=== PATIENT | female | born 1985 | race Caucasian/White ===

== ENCOUNTER 2020-06-23 21:48 | Emergency (ER) | payer BC ==
[2020-06-23 22:30] LABS: Basophils % 0.5 % (0-1.3); Hematocrit 45.9 % (36.0-45.0); Lymphocytes % 18.2 % (15.3-44.8); MPV 8.2 fL (7.6-11.3); RBC Red Blood Cell Count 5.16 M/uL (3.86-4.86)
[2020-06-23] MEDS ORDERED: ONDANSETRON 4 MG/2 ML VIAL ONE (22:36)
[2020-06-23] MEDS ORDERED: MORPHINE 4 MG/ML SYR ONE (22:36)
[2020-06-23] MEDS ORDERED: NA CHLORIDE 0.9% 500 ML ONE (22:36)
[2020-06-23] MEDS ORDERED: dexAMETHasone 10 MG/ML VIAL ONE (22:36)
[2020-06-23 23:05] LABS: Potassium 3.9 mmol/L (3.5-5.1)
[2020-06-23 23:07] LABS: Thyroid Stimulating Hormone 19.7 uIU/mL (0.360-3.740)
--- NOTE | 2020-06-23 23:33 | EDPHYS ---
Physician Documentation [facility] Name: Champ Wills Age: 34 yrs Sex: Female : 1985 Arrival Date: 06/23/2020 Time: 21:51 Bed 13 Private MD: ED Physician Reji Jones HPI: 06/23 22:10 This 34 yrs old Female presents to ER via Ambulatory with complaints of pkl Migraine, Vomiting. 22:10 The patient complains of pain to the top of head and forehead. The patient describes pkl the headache as constant. Onset: The symptoms/episode began/occurred today, 5 hour(s) ago. Associated signs and symptoms: Pertinent positives: nausea, vomiting. Patient said she has not been taking her thyroid medication for 1 week. 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 - Social history:: Smoking status: Patient denies any tobacco usage or history of. Patient/guardian denies using alcohol, street drugs. ROS: 22:10 Eyes: Negative for injury, pain, redness, and discharge, ENT: Negative for injury, pkl pain, and discharge, Neck: Negative for injury, pain, and swelling, Cardiovascular: Negative for chest pain, palpitations, and edema, Respiratory: Negative for shortness of breath, cough, wheezing, and pleuritic chest pain. 22:10 Abdomen/GI: Positive for nausea, vomiting. 22:10 Back: Negative for acute changes. 22:10 : Negative for urinary symptoms. 22:10 MS/extremity: Negative for acute changes. 22:10 Skin: Negative for rash. 22:10 Neuro: Negative for altered mental status. 22:10 Neuro: Positive for headache. pkl Exam: 22:10 Head/Face: Normocephalic, atraumatic. Eyes: Pupils equal round and reactive to light, pkl extra-ocular motions intact. Lids and lashes normal. Conjunctiva and sclera are non-icteric and not injected. Cornea within normal limits. Periorbital areas with no swelling, redness, or edema. ENT: Nares patent. No nasal discharge, no septal abnormalities noted. Tympanic membranes are normal and external auditory canals are clear. Oropharynx with no redness, swelling, or masses, exudates, or evidence of obstruction, uvula midline. Mucous membranes moist. Neck: Trachea midline, no thyromegaly or masses palpated, and no cervical lymphadenopathy. Supple, full range of motion without nuchal rigidity, or vertebral point tenderness. No Meningismus. Chest/axilla: Normal chest wall appearance and motion. Nontender with no deformity. No lesions are appreciated. Cardiovascular: Regular rate and rhythm with a normal S1 and S2. No gallops, murmurs, or rubs. Normal PMI, no JVD. No pulse deficits. Respiratory: Lungs have equal breath sounds bilaterally, clear to auscultation and percussion. No rales, rhonchi or wheezes noted. No increased work of breathing, no retractions or nasal flaring. Abdomen/GI: Soft, non-tender, with normal bowel sounds. No distension or tympany. No guarding or rebound. No evidence of tenderness throughout. Back: No spinal tenderness. No costovertebral tenderness. Full range of motion. Skin: Warm, dry with normal turgor. Normal color with no rashes, no lesions, and no evidence of cellulitis. MS/ Extremity: Pulses equal, no cyanosis. Neurovascular intact. Full, normal range of motion. Neuro: Awake and alert, GCS 15, oriented to person, place, time, and situation. Cranial nerves II-XII grossly intact. Motor strength 5/5 in all extremities. Sensory grossly intact. Cerebellar exam normal. Normal gait. Vital Signs: 21:55 BP 150 / 96; Pulse 85; Resp 18; Temp 97.8; Pulse Ox 98% ; Pain 9/10; ll1 23:46 BP 141 / 70; Pulse 80; Resp 16; Temp 98.3; Pulse Ox 99% ; Pain 3/10; rr5 MDM: 21:56 Patient medically screened. pkl 23:30 Data reviewed: vital signs, nurses notes, lab test result(s). ED course: Patient pkl feeling better. Discussed lab results with patient. Advised to follow up with PCP next week. Patient understood instructions. 06/23 22:07 Order name: CBC with Diff; Complete Time: 23:25 pkl 06/23 22:07 Order name: Chem 7; Complete Time: 23:25 pkl 06/23 22:09 Order name: TSH pkl 06/23 22:43 Order name: Thyroid Stimulating Hormone; Complete Time: 23:25 EDMS 06/23 23:08 Order name: T4 Free; Complete Time: 23:25 EDMS Administered Medications: 22:30 Drug: NS 0.9% 500 ml Route: IV; Rate: bolus; Site: right upper arm; vc 23:00 Follow up: IV Status: Completed infusion; IV Intake: 500ml vc 22:30 Drug: morphine 4 mg Route: IVP; Site: right upper arm; vc 23:10 Follow up: Response: No adverse reaction; Pain is decreased vc 22:30 Drug: Zofran (Ondansetron) 4 mg Route: IVP; Site: right upper arm; vc 23:00 Follow up: Response: No adverse reaction; Nausea is decreased vc 22:30 Drug: Decadron - Dexamethasone 10 mg Route: IVP; Site: right upper arm; vc 23:00 Follow up: Response: No adverse reaction; Pain is decreased vc Disposition: 06/23/20 23:32 Discharged to Home. Impression: Acute heasache. Hypothyroidism. - Condition is Stable. - Prescriptions for Ultram 50 mg Oral Tablet - take 1 tablet by ORAL route every 8 hours As needed; 12 tablet. Zofran 4 mg Oral Tablet - take 1 tablet by ORAL route every 12 hours As needed; 6 tablet. - Medication Reconciliation Form, Thank You Letter, Antibiotic Education, Prescription Opioid Use form. - Follow up: Private Physician; When: 1 week; Reason: Re-evaluation by your physician. - Problem is new. - Symptoms have improved. Signatures: Dispatcher Med[facility] EDOK Reji Jones MD MD pkl Calcote, Vanessa, RN RN Sena Eid RN RN ll1 Corrections: (The following items were deleted from the chart) 22:42 22:10 Thyroid Stimulating Hormone ordered. EDOK EDMS 23:58 23:32 06/23/2020 23:32 Discharged to Home. Impression: Acute heasache. Hypothyroidism. vc Condition is Stable. Forms are Medication Reconciliation Form, Thank You Letter, Antibiotic Education, Prescription Opioid Use. Follow up: Private Physician; When: 1 week; Reason: Re-evaluation by your physician. Problem is new. Symptoms have improved. pkl
--- NOTE | 2020-06-23 23:33 | ER ---
Nurse's Notes [facility] Name: Champ Wills Age: 34 yrs Sex: Female : 1985 Arrival Date: 06/23/2020 Time: 21:51 Bed 13 Private MD: Diagnosis: Acute heasache. Hypothyroidism Presentation: 06/23 21:55 Chief complaint: Patient states: Migraine VALADEZ with N/V since 5pm. States she thinks her ll1 thyroid levels may be low because she didn't take them for 1 week. Coronavirus screen: Client denies travel out of the [place] in the last 14 days. At this time, the client does not indicate any symptoms associated with coronavirus-19. Ebola Screen: Patient denies travel to an Ebola-affected area in the 21 days before illness onset. Initial Sepsis Screen: Does the patient meet any 2 criteria? No. Patient's initial sepsis screen is negative. Risk Assessment: Do you want to hurt yourself or someone else? Patient reports no desire to harm self or others. Onset of symptoms was June 23, 2020. 21:55 Method Of Arrival: Ambulatory ll1 21:55 Acuity: LANCE 3 ll1 22:00 Initial Sepsis Screen: Does the patient have a suspected source of infection? No. vc Patient's initial sepsis screen is negative. Triage Assessment: 22:00 General: Appears in no apparent distress. uncomfortable, obese, Behavior is calm, vc cooperative, appropriate for age. Pain: Complains of pain in top of head, forehead, right mormon, left mormon, left frontal area, left side of the back of head, right frontal area and right side of the back of head Pain does not radiate. Pain currently is 8 out of 10 on a pain scale. Quality of pain is described as sharp, stabbing, squeezing, Pain began gradually, 1700. 22:00 GI: Pt is actively vomiting Reports nausea, vomiting. 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 - Social history:: Smoking status: Patient denies any tobacco usage or history of. Patient/guardian denies using alcohol, street drugs. Screenin:30 Abuse screen: Denies threats or abuse. Denies injuries from another. Nutritional rr5 screening: No deficits noted. Tuberculosis screening: No symptoms or risk factors identified. Fall Risk IV access (20 points). Total Waite Fall Scale indicates No Risk (0-24 pts). Assessment: 22:00 GI: Abdomen is round obese, Pt is actively vomiting. vc 22:00 General: Appears in no apparent distress. uncomfortable, obese, Behavior is calm, vc cooperative, appropriate for age. Neuro: Level of Consciousness is awake, obeys commands, lethargic, Oriented to person, place, time, situation, Appropriate for age. Cardiovascular: Capillary refill < 3 seconds Patient's skin is warm and dry. Respiratory: No deficits noted. : No signs and/or symptoms were reported regarding the genitourinary system. Derm: Skin is intact, is healthy with good turgor, Skin temperature is warm. Musculoskeletal: Circulation, motion, and sensation intact. Range of motion: intact in all extremities. 23:00 Reassessment: Patient is alert, oriented x 3, equal unlabored respirations, skin vc warm/dry/pink. Patient states feeling better. Patient states symptoms have improved. 23:48 Reassessment: Patient appears in no apparent distress at this time. Patient is alert, rr5 oriented x 3, equal unlabored respirations, skin warm/dry/pink. discharge instruction given and explained without complaints made Patient denies pain at this time. Patient states feeling better. Patient states symptoms have improved. Vital Signs: 21:55 BP 150 / 96; Pulse 85; Resp 18; Temp 97.8; Pulse Ox 98% ; Pain 9/10; ll1 23:46 BP 141 / 70; Pulse 80; Resp 16; Temp 98.3; Pulse Ox 99% ; Pain 3/10; rr5 ED Course: 21:51 Patient arrived in ED. cl3 21:55 Marsha Jenkins, ANDRES is Primary Nurse. vc 21:56 Triage completed. ll1 21:56 Reij Jones MD is Attending Physician. pkl 21:57 Arm band placed on Patient placed in an exam room, on a stretcher. ll1 22:00 Patient has correct armband on for positive identification. Bed in low position. Call rr5 light in reach. Side rails up X2. Pulse ox on. NIBP on. 22:20 No provider procedures requiring assistance completed. Inserted saline lock: 22 gauge rr5 in right upper arm, using aseptic technique. ,using aseptic technique. inserted by marsha CAMPOS Blood collected. Accessed. 23:48 IV discontinued, intact, bleeding controlled, No redness/swelling at site. Pressure rr5 dressing applied. Administered Medications: 22:30 Drug: NS 0.9% 500 ml Route: IV; Rate: bolus; Site: right upper arm; vc 23:00 Follow up: IV Status: Completed infusion; IV Intake: 500ml vc 22:30 Drug: morphine 4 mg Route: IVP; Site: right upper arm; vc 23:10 Follow up: Response: No adverse reaction; Pain is decreased vc 22:30 Drug: Zofran (Ondansetron) 4 mg Route: IVP; Site: right upper arm; vc 23:00 Follow up: Response: No adverse reaction; Nausea is decreased vc 22:30 Drug: Decadron - Dexamethasone 10 mg Route: IVP; Site: right upper arm; vc 23:00 Follow up: Response: No adverse reaction; Pain is decreased vc Outcome: 23:32 Discharge ordered by MD. zhu 23:48 Discharged to home ambulatory. rr5 23:48 Condition: stable 23:48 Discharge instructions given to patient, Instructed on discharge instructions, follow up and referral plans. medication usage, Demonstrated understanding of instructions, follow-up care, medications, Prescriptions given X 2. 23:58 Patient left the ED. vc Signatures: Reji Jones MD MD pkl Roque, Raymond, RN RN rr5 [place] cl3 Marsha Jenkins RN RN vc Lewis, Lynsay, RN RN ll1
[2020-06-25 16:37] VITALS: BP 141/70; TEMP 98.3; O2SAT 99
== END 2020-06-23 23:58 | disposition home or self-care (01) ==
LOC: ER 21:48
DX: E03.9 Hypothyroidism, unspecified (principal); I10 Essential (primary) hypertension
CPT/HCPCS: 85025; 80048; 36415; 84443; 84439; 96375; 96374; 99284; J1100; J7040; J2405

== ENCOUNTER 2021-09-12 22:12 | Emergency (ER) | payer BC ==
--- OUTSIDE RECORDS SUMMARY | 2021-09-12 22:15 | XMS REPORT | Continuity of Care Document ---
:1985 Author Organization [facility] t Address [address] [place] [address] Care Team Providers Name Role Phone Winston Romero NP Attending Clinician Problems Condition Condition Condition Status Onset Resolution Last Treating Co mments Source Name Details Category Date Date Treatment Clinician Date No known No known Disease Unive rs active active ity of problems problems [facility] Allergies, Adverse Reactions, Alerts This patient has no known allergies or adverse reactions. Social History Social Habit Start Date Stop Date Quantity Comments [facility] Status Start Date Stop Date Source Unknown if ever smoked [facility] Medications Ordered Filled Start Stop Current Ordering Indication Dosage Frequency Signature Comments Components Source Medication Medication Date Date Medication? Clinician (SIG) Name Name lidocaine-p 2019- No 5g Topical, U nivers rilocaine 05-20 ONCE, 1 ity of (EMLA) 02:45: 01:43 dose, [facility] 2.5-2.5 % 00 :00 05/19/[address] [facility] david cream 5 g 5, NATA Bran ch doxycycline 2019- No 100mg 100 mg, U nivers (Vibramycin 05-20 Oral, ity of ) capsule 02:30: 01:46 [place]CE, [place] 100 mg [place] :00 dose, [facility] 05/19/19 at [place] [address], NATA
Re ason for Anti-Infec tive: Documented Infection< br>Documen saurabh Infection Site: Skin / Soft Tissue
Duration of Therapy: 14 days HYDROcodone 2019- No 1{tbl} 1 tablet, Univers -acetaminop 05-20 Oral, ity of hen (NORCO 02:30: 01:45 ONCE, 1 [place] as 5) 5-325 mg 00 :00 dose, Tue Med ical tablet 1 05/19/19 at Branc h tablet 2130, NATA lidocaine-p 2019- No 2.5g Topical, U nivers rilocaine 05-20 ONCE, 1 ity of (EMLA) 02:00: 00:57 dose, Tue [place] 2.5-2.5 % 00 :00 05/19/19 at Medi david cream 2.5 g 2100, NATA Br anch traMADol 50 2018-0 Yes [id number] 50mg Take 1 Univers mg tablet 7-30 tablet by ity o f 00:00: mouth [place] 00 every 6 Medical (six) Branch hours as needed for Pain (scale 4-6). etodolac Yes [id number] 400mg Take 1 Un louann (LODINE) -30 tablet by ity of 400 mg 00:00: mouth 3 [place] tablet 00 (three) Medical times Branch daily. doxycycline 2019- No [id number] 100mg Take 1 Univers 100 mg 05-1914 capsule by ity of capsule 00:00: 04:59 mouth 2 [place] 00 :00 (two) Medical times Branch daily for 14 days. Levothyroxi Yes 80ug Take 80 Uni vers ne 75 mcg 7-03 mcg by ity of capsule 15:58: mouth. [place] [facility] hydroCHLORO Yes 25mg Take 25 mg Univers thiazide 25 703 by mouth ity of mg tablet 15:58: daily. [place] [facility] norgestimat Yes 1{tbl} Take 1 Un louann e-ethinyl 7-03 tablet by ity o f estradiol 15:58: mouth [place] (-DEC 19 daily. Medica l CHENCHO) Branch 0.18/0.215/ 0.25 mg-25 mcg tablet CIPROFLOXAC Yes 250mg Take 1 Uni vers IN HCL 250 7-03 tablet by ity of mg tablet 00:00: mouth 2 [place] 00 (two) Medical times Branch daily. FIORICET Yes 1{capsu Take 1 Univ ers WITH 7-03 le} capsule by ity of CODEINE 00:00: mouth [place] 50-300-40-3 00 every 6 Medic al 0 mg per (six) Branch capsule hours as needed for Pain (scale 1-3). ZOFRAN ODT 2017-0 Yes 4mg Take 1 Unive rs 4 mg 7-03 tablet by ity of disintegrat 00:00: mouth [place] ing tablet 00 every 8 Medica l (eight) Branch hours as needed for Nausea and Vomiting (N/V). Vital Signs Vital Name Observation Time Observation Value Comments Source Systolic blood 2019-05-20 03:12:00 139 mm[Hg] Univer sity of pressure [facility] Diastolic blood 2019-05-20 03:12:00 88 mm[Hg[facility] rate 2019-05-20 03:12:00 79 /min [facility] Respiratory rate 2019-05-20 03:12:00 18 /min [facility] Oxygen saturation in 2019-05-20 03:12:00 97 /min [facility] Arterial blood by [facility] Pulse oximetry Branch Body temperature 2019-05-20 00:20:00 36.67 [facility] Body weight 2019-05-20 00:20:00 136.079 kg [facility] BMI 2019-05-20 00:20:00 46.99 kg/m2 [facility] Procedures Procedure Date / Time Performed Performing Clinician Denis jasso INCISION AND DRAINAGE 2019-05-20 01:50:43 Xena Romero [facility] NOTICE OF PRIVACY 2019-05-20 00:14:35 Doctor Unassigned, No [facility] CONSENT/REFUSAL FOR 2019-05-20 00:13:45 Doctor Unassigned, No [facility] [place] TREATMENT Encounters Start End Encounter Admission Attending Care Care Encounter Source Date/Time Date/Time Type Type Clinicians Facility Department ID 2019-05-19 2019-05-19 Emergency MYRNA Romero [id number] [facility] 19:18:08 22:20:00 Xena Cook [id number] Khadar [id number] [facility] [id number] [facility] 084 Branch Results This patient has no known results.
--- NOTE | 2021-09-12 22:27 | ER ---
Nurse's Notes [facility] Name: Champ Wills Age: 35 yrs Sex: Female : 1985 Arrival Date: 09/12/2021 Time: 22:15 Bed 5 Private MD: Diagnosis: Pain in right arm Presentation: 09/12 22:21 Chief complaint: Patient states: R arm pain that began 2 months ago after shampooing ss carpets. Pain became much worse over the past 2 days. Coronavirus screen: Client denies travel out of the [place] in the last 14 days. Ebola Screen: Patient denies exposure to infectious person. Patient denies travel to an Ebola-affected area in the 21 days before illness onset. Initial Sepsis Screen: Does the patient meet any 2 criteria? No. Patient's initial sepsis screen is negative. Does the patient have a suspected source of infection? No. Patient's initial sepsis screen is negative. Risk Assessment: Do you want to hurt yourself or someone else? Patient reports no desire to harm self or others. Onset of symptoms was June 2021. 22:21 Method Of Arrival: Ambulatory ss 22:21 Acuity: LANCE 4 ss Historical: - Allergies: 22:22 No Known Allergies; ss - Home Meds: 22:22 Abilify oral [Active]; metformin 500 mg Oral Tb24 1 tab once daily [Active]; ss - PMHx: 22:22 Diabetes - NIDDM; Hypertension; Hypothyroidism; ss - Immunization history:: Client reports having NOT received the Covid vaccine. - Social history:: Smoking status: Patient denies any tobacco usage or history of. Screenin:25 Abuse screen: Denies threats or abuse. Denies injuries from another. Nutritional lp1 screening: No deficits noted. Tuberculosis screening: No symptoms or risk factors identified. Fall Risk None identified. 22:30 Abuse screen: Denies threats or abuse. Denies injuries from another. Nutritional ss screening: No deficits noted. Tuberculosis screening: Never had TB. Fall Risk None identified. Assessment: 22:37 General: Appears in no apparent distress. Behavior is appropriate for age. Pain: lp1 Complains of pain in right arm Pain currently is 6 out of 10 on a pain scale. Neuro: Level of Consciousness is awake, alert, obeys commands, Intact. Cardiovascular: No deficits noted. Respiratory: No deficits noted. GI: No signs and/or symptoms were reported involving the gastrointestinal system. : No signs and/or symptoms were reported regarding the genitourinary system. EENT: No signs and/or symptoms were reported regarding the EENT system. Derm: Skin is pink, warm \T\ dry. Musculoskeletal: Circulation, motion, and sensation intact. Range of motion: intact in all extremities. Vital Signs: 22:21 Resp 16; Temp 97.6(TE); Weight 139.25 kg; Height 5 ft. 7 in. (170.18 cm); Pain 7/10; ss 22:25 BP 123 / 77; Pulse 86; Pulse Ox 99% on R/A; lp1 22:21 Body Mass Index 48.08 (139.25 kg, 170.18 cm) ED Course: 22:15 Patient arrived in ED. bp1 22:17 Daniel Bond PA is PHCP. lp1 22:17 Latricia Chan, RN is Primary Nurse. lp1 22:22 Basilio Bhagat MD is Attending Physician. [facility] 22:22 Triage completed. ss 22:22 Arm band placed on right wrist. ss 22:30 Patient has correct armband on for positive identification. Bed in low position. ss 22:30 No provider procedures requiring assistance completed. Patient did not have IV access ss during this emergency room visit. Administered Medications: No medications were administered Outcome: 22:26 Discharge ordered by . bharat 22:37 Discharged to home ambulatory. lp1 22:37 Condition: good 22:37 Discharge instructions given to patient, Instructed on discharge instructions, follow up and referral plans. medication usage, Demonstrated understanding of instructions, follow-up care, medications, Prescriptions given X 2. 22:38 Patient left the ED. lp1 Signatures: Basilio Bhagat MD MD cha Smirch, Shelby, RN RN Latricia Chan RN RN 1 Daniel Bond PA PA [id number] [place], Brittany bp1
--- NOTE | 2021-09-12 22:27 | EDPHYS ---
Physician Documentation [facility] Name: Champ Wills Age: 35 yrs Sex: Female : 1985 Arrival Date: 09/12/2021 Time: 22:15 Bed 5 Private MD: ED Physician Basilio Bhagat HPI: 09/12 22:32 This 35 yrs old Female presents to ER via Ambulatory with complaints of Arm Pain. jr8 22:32 This is a 35-year-old female patient that presented emergency room with complaints of jr8 right arm pain. Patient stated that she has had it ever since she had finished grooming floors. Complains of diffuse right arm pain that tracks from her right shoulder down through her lateral right dorsal arm and into her fourth and fifth digits. Periodic numbness as well. Denies weakness of extremity.. Historical: - Allergies: 22:22 No Known Allergies; ss - Home Meds: 22:22 Abilify oral [Active]; metformin 500 mg Oral Tb24 1 tab once daily [Active]; ss - PMHx: 22:22 Diabetes - NIDDM; Hypertension; Hypothyroidism; ss - Immunization history:: Client reports having NOT received the Covid vaccine. - Social history:: Smoking status: Patient denies any tobacco usage or history of. ROS: 22:32 Eyes: Negative for injury, pain, redness, and discharge, ENT: Negative for injury, jr8 pain, and discharge, Neck: Negative for injury, pain, and swelling, Cardiovascular: Negative for chest pain, palpitations, and edema, Respiratory: Negative for shortness of breath, cough, wheezing, and pleuritic chest pain, Abdomen/GI: Negative for abdominal pain, nausea, vomiting, diarrhea, and constipation, Back: Negative for injury and pain, Skin: Negative for injury, rash, and discoloration, Neuro: Negative for headache, weakness, numbness, tingling, and seizure. 22:32 MS/extremity: Positive for pain, paresthesias, tenderness, of the right arm. Exam: 22:32 Constitutional: This is a well developed, well nourished patient who is awake, alert, jr8 and in no acute distress. Neck: Trachea midline, no thyromegaly or masses palpated, and no cervical lymphadenopathy. Supple, full range of motion without nuchal rigidity, or vertebral point tenderness. No Meningismus. Chest/axilla: Normal chest wall appearance and motion. Nontender with no deformity. No lesions are appreciated. Cardiovascular: Regular rate and rhythm with a normal S1 and S2. No gallops, murmurs, or rubs. Normal PMI, no JVD. No pulse deficits. Respiratory: Lungs have equal breath sounds bilaterally, clear to auscultation and percussion. No rales, rhonchi or wheezes noted. No increased work of breathing, no retractions or nasal flaring. Back: No spinal tenderness. No costovertebral tenderness. Full range of motion. Skin: Warm, dry with normal turgor. Normal color with no rashes, no lesions, and no evidence of cellulitis. Neuro: Awake and alert, GCS 15, oriented to person, place, time, and situation. Cranial nerves II-XII grossly intact. Motor strength 5/5 in all extremities. Sensory grossly intact. Cerebellar exam normal. Normal gait. 22:32 Musculoskeletal/extremity: Extremities: grossly normal except: noted in the right arm: Patient has mild tenderness to the right lateral epicondyle, right dorsal forearm, right triceps region. No erythema, swelling, bruising noted. Patient has full range of motion but with pain. Pulses 3+ to affected extremity with normal sensation. No paresthesias at this time.. Vital Signs: 22:21 Resp 16; Temp 97.6(TE); Weight 139.25 kg; Height 5 ft. 7 in. (170.18 cm); Pain 7/10; ss 22:25 BP 123 / 77; Pulse 86; Pulse Ox 99% on R/A; lp1 22:21 Body Mass Index 48.08 (139.25 kg, 170.18 cm) ss MDM: 22:23 Patient medically screened. umberto 22:25 Data reviewed: vital signs, nurses notes, and as a result, I will discharge patient. jr8 Data interpreted: Pulse oximetry: on room air is 99 %. Interpretation: normal. Counseling: I had a detailed discussion with the patient and/or guardian regarding: the historical points, exam findings, and any diagnostic results supporting the discharge/admit diagnosis, the need for outpatient follow up, a orthopedic surgeon, to return to the emergency department if symptoms worsen or persist or if there are any questions or concerns that arise at home. ED course: With patient that she has radial distributed pain to the right arm. No focal deficit, no wrist drop, no general weakness of the arm which is good. Recommended anti-inflammatory and steroid pack for the meantime and that patient needs ultimately follow-up if she continues to have this pain for an EMG. Patient good with this at this time.. Administered Medications: No medications were administered Disposition: 09/13 09:25 Co-signature as Attending Physician, Basilio Bhagat MD I agree with the assessment and umberto plan of care. Disposition Summary: 09/12/21 22:26 Discharge Ordered Location: Home jr8 Problem: new jr8 Symptoms: have improved jr8 Condition: Stable jr8 Diagnosis - Pain in right arm jr8 Followup: jr8 - With: Private Physician - When: 1 week - Reason: Recheck today's complaints, Continuance of care, Re-evaluation by your physician Discharge Instructions: - Discharge Summary Sheet jr8 - Musculoskeletal Pain jr8 Forms: - Medication Reconciliation Form jr8 - Thank You Letter jr8 - Antibiotic Education jr8 - Prescription Opioid Use jr8 Prescriptions: - meloxicam 15 mg Oral tablet - take 1 tablet by ORAL route once daily As needed; 20 tablet; Refills: 0, jr8 Product Selection Permitted - Medrol (Odilon) 4 mg Oral Tablets, Dose Pack - take 1 tablet by ORAL route as directed - follow package instructions; 1 jr8 packet; Refills: 0, Product Selection Permitted Signatures: Basilio Bhagat MD MD cha Smirch, Shelby RN RN ss Latricia Chan RN RN lp1 Daniel Bond PA PA jr8
[2021-09-12 22:46] VITALS: TEMP 97.6
[2021-09-12 22:47] VITALS: BP 123/77; O2SAT 99
== END 2021-09-12 22:38 | disposition home or self-care (01) ==
LOC: ER 22:12
DX: M79.601 Pain in right arm (principal); I10 Essential (primary) hypertension; E11.9 Type 2 diabetes mellitus without complications
CPT/HCPCS: 99282

== ENCOUNTER 2022-04-29 10:43 | Emergency (ER) | payer BC ==
--- NOTE | 2022-04-29 11:16 | ER ---
Nurse's Notes [facility] Name: Champ Wills Age: 36 yrs Sex: Female : 1985 Arrival Date: 04/29/2022 Time: 10:44 Bed 18 Private MD: Edison Salas T Diagnosis: Cutaneous abscess of abdominal wall-Umbilicus Presentation: 04/29 10:51 Chief complaint: Patient states: i kept feeling like something needed to pop in my tw2 belly button area. i was just showing my mom in the car and there was no puss there and now there is. denies n/v/d. Coronavirus screen: At this time, the client does not indicate any symptoms associated with coronavirus-19. Ebola Screen: Patient denies travel to an Ebola-affected area in the 21 days before illness onset. Initial Sepsis Screen: Does the patient meet any 2 criteria? HR > 90 bpm. No. Patient's initial sepsis screen is negative. Does the patient have a suspected source of infection? No. Patient's initial sepsis screen is negative. Risk Assessment: Do you want to hurt yourself or someone else? Patient reports no desire to harm self or others. Onset of symptoms was April 29, 2022. 10:51 Method Of Arrival: Ambulatory tw2 10:51 Acuity: LANCE 3 tw2 11:07 Acuity: LANCE 4 tw2 Triage Assessment: 10:54 General: Appears in no apparent distress. obese, well groomed, Behavior is calm, tw2 cooperative, appropriate for age. Pain: Complains of pain in umbilical area. GI: purulent drainage noted in umbilical area Reports swelling noted above umbilical area past day. 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 - Social history:: Smoking status: Patient denies any tobacco usage or history of. - Family history:: not pertinent. - Hospitalizations: : No recent hospitalization is reported. Screenin:06 Abuse screen: Denies threats or abuse. Nutritional screening: No deficits noted. tw2 Tuberculosis screening: No symptoms or risk factors identified. Fall Risk None identified. Assessment: 11:06 Reassessment: see triage assessment. tw2 11:07 Reassessment: provider at bedside. tw2 11:22 Reassessment: Patient appears in no apparent distress at this time. No changes from tw2 previously documented assessment. Patient and/or family updated on plan of care and expected duration. Pain level reassessed. Patient is alert, oriented x 3, equal unlabored respirations, skin warm/dry/pink. 11:23 GI: na na. tw2 Vital Signs: 10:51 BP 137 / 71; Pulse 98; Resp 17; Temp 97.7(TE); Pulse Ox 100% ; Weight 147.42 kg (R); tw2 Height 5 ft. 7 in. (170.18 cm); 10:51 Body Mass Index 50.90 (147.42 kg, 170.18 cm) tw2 ED Course: 10:44 Patient arrived in ED. as 10:45 Edison Salas MD is Private Physician. as 10:46 Bed in low position. Call light in reach. tw2 10:51 Kala Castle RN is Primary Nurse. tw2 10:53 Triage completed. tw2 10:54 Arm band placed on. tw2 11:02 Jones Monreal MD is Attending Physician. rn 11:22 No provider procedures requiring assistance completed. Patient did not have IV access tw2 during this emergency room visit. Administered Medications: No medications were administered Medication: 11:22 VIS not applicable for this client. tw2 Outcome: 11:15 Discharge ordered by . rn 11:22 Discharged to home ambulatory. tw2 11:22 Condition: stable 11:22 Discharge instructions given to patient, Instructed on discharge instructions, follow up and referral plans. medication usage, Demonstrated understanding of instructions, follow-up care, medications, Prescriptions given X 1. 11:23 Patient left the ED. tw2 Signatures: Sharon Suero Roman, MD MD rn Wise, Tara, RN RN tw2
--- NOTE | 2022-04-29 11:16 | EDPHYS ---
Physician Documentation [facility] Name: Champ Wills Age: 36 yrs Sex: Female : 1985 Arrival Date: 04/29/2022 Time: 10:44 Bed 18 Private MD: Edison Salas T ED Physician Jones Monreal HPI: 04/29 11:10 This 36 yrs old Female presents to ER via Ambulatory with complaints of Belly button rn pain. 11:10 The patient presents with abdominal pain umbilical. Onset: The symptoms/episode rn began/occurred yesterday. The symptoms do not radiate. The symptoms are described as stabbing. Modifying factors: The symptoms are alleviated by nothing, the symptoms are aggravated by touching the area. The patient has not experienced similar symptoms in the past. The patient has not recently seen a physician. Pt reports has hidradenitis suppurativa, began with umbilical pain and subjective swelling for 2 days. When got into ER exam room just now, popped and now draining pus. feels much better. 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 - Social history:: Smoking status: Patient denies any tobacco usage or history of. - Family history:: not pertinent. - Hospitalizations: : No recent hospitalization is reported. ROS: 11:10 Constitutional: Negative for fever, chills, and weight loss, Abdomen/GI: + umbilical rn pain Skin: Negative for injury, rash, and discoloration. Exam: 11:10 Constitutional: This is a well developed, well nourished patient who is awake, alert, rn and in no acute distress. Abdomen/GI: Soft, non-tender, umbilicus with purulent drainage, pressure applied until no further fluctuance felt and no further drainage appreciated. Vital Signs: 10:51 BP 137 / 71; Pulse 98; Resp 17; Temp 97.7(TE); Pulse Ox 100% ; Weight 147.42 kg (R); tw2 Height 5 ft. 7 in. (170.18 cm); 10:51 Body Mass Index 50.90 (147.42 kg, 170.18 cm) tw2 MDM: 11:02 Patient medically screened. rn 11:10 Differential diagnosis: umbilical abscess. Data reviewed: vital signs, nurses notes, rn and as a result, I will discharge patient. Counseling: I had a detailed discussion with the patient and/or guardian regarding: the historical points, exam findings, and any diagnostic results supporting the discharge/admit diagnosis, the need for outpatient follow up, to return to the emergency department if symptoms worsen or persist or if there are any questions or concerns that arise at home. Response to treatment: the patient's symptoms have markedly improved after treatment, and as a result, I will discharge patient. Administered Medications: No medications were administered Disposition Summary: 04/29/22 11:15 Discharge Ordered Location: Home rn Problem: new rn Symptoms: have improved rn Condition: Stable rn Diagnosis - Cutaneous abscess of abdominal wall - Umbilicus rn Followup: rn - With: Private Physician - When: As needed - Reason: Recheck today's complaints, Re-evaluation by your physician Discharge Instructions: - Discharge Summary Sheet rn - Skin Abscess rn Forms: - Medication Reconciliation Form rn - Thank You Letter rn - Antibiotic garnishment specialist - Prescription Opioid Use rn Prescriptions: - Clindamycin HCl 300 mg Oral Capsule - take 1 capsule by ORAL route every 6 hours for 10 days; 40 capsule; Refills: 0, rn Product Selection Permitted Signatures: Jones Monreal MD MD rn Wise, Tara, RN RN tw2
[2022-04-29 11:29] VITALS: BP 137/71; TEMP 97.7; O2SAT 100
== END 2022-04-29 11:23 | disposition home or self-care (01) ==
LOC: ER 10:43
DX: L02.211 Cutaneous abscess of abdominal wall (principal); E11.9 Type 2 diabetes mellitus without complications; I10 Essential (primary) hypertension; E03.9 Hypothyroidism, unspecified
CPT/HCPCS: 99282

== ENCOUNTER 2022-11-08 14:42 | Emergency (ER) | payer BC ==
--- OUTSIDE RECORDS SUMMARY | 2022-11-08 14:46 | XMS REPORT | Continuity of Care Document ---
:1985 Author Organization [facility] t Address [address] [place] [address] Care Team Providers Name Role Phone Xena Romero NP Attending Clinician Problems Condition Condition Condition Status Onset Resolution Last Treating Co mments Source Name Details Category Date Date Treatment Clinician Date No known No known Disease Unive rs active active ity of problems problems [facility] Allergies, Adverse Reactions, Alerts This patient has no known allergies or adverse reactions. Social History Social Habit Start Date Stop Date Quantity Comments Source Sex Assigned At Uni versity [facility] Smoking Status Start Date Stop Date Source Unknown if ever smoked Universit y [facility] Medications Ordered Filled Start Stop Current Ordering Indication Dosage Frequency Signature Comments Components Source Medication Medication Date Date Medication? Clinician (SIG) Name Name lidocaine-p 2019- No 5g Topical, U nivers rilocaine 05-20 ONCE, 1 ity of (EMLA) 02:45: 01:43 dose, [facility] 2.5-2.5 % 00 :00 05/19/[address] [facility] david cream 5 g 5, NATA Bran ch doxycycline 2019- No 100mg 100 mg, U nivers (Vibramycin 05-20 Oral, ity of ) capsule 02:30: 01:46 [place]CE, [place] 100 [place] :00 dose, [facility] 05/19/19 at [place] 2130, NATA
Re ason for Anti-Infec tive: Documented Infection< br>Documen saurabh Infection Site: Skin / Soft Tissue
Duration of Therapy: 14 days HYDROcodone 2019- No 1{tbl} 1 tablet, Univers -acetaminop 7-31 07-31 Oral, ity of hen (NORCO 02:30: 01:45 ONCE, 1 [place] as 5) 5-325 mg 00 :00 dose, Tue Med ical tablet 1 05/19/19 at Bran h tablet 2130, NATA lidocaine-p 2019- No 2.5g Topical, U nivers rilocaine 05-2031 ONCE, 1 ity of (EMLA) 02:00: 00:57 dose, Tue [place] 2.5-2.5 % 00 :00 05/19/19 at Medi david cream 2.5 g 2100, NATA Br anch traMADol 50 2018- Yes [id number] 50mg Take 1 Univers mg tablet -30 tablet by ity o f 00:00: mouth [place] 00 every 6 Medical (six) Branch hours as needed for Pain (scale 4-6). etodolac Yes [id number] 400mg Take 1 Un louann (LODINE) 7-30 tablet by ity of 400 mg 00:00: mouth 3 [place] tablet 00 (three) Medical times Branch daily. doxycycline 2019- No [id number] 100mg Take 1 Univers 100 mg 05-19 08-14 capsule by ity of capsule 00:00: 04:59 mouth 2 [place] 00 :00 (two) Medical times Branch daily for 14 days. Levothyroxi Yes 80ug Take 80 Uni vers ne 75 mcg 7-03 mcg by ity of capsule 15:58: mouth. [place] [facility] hydroCHLORO Yes 25mg Take 25 mg Univers thiazide 25 703 by mouth ity of mg tablet 15:58: daily. [place] [facility] norgestimat Yes 1{tbl} Take 1 Un louann e-ethinyl 7-03 tablet by ity o f estradiol 15:58: mouth [place] (-LO-DEC 01 daily. Medica l CHENCHO) Branch 0.18/0.215/ 0.25 [...] hours as needed for Pain (scale 1-3). ZOFRLAKE ODT 2017-0 Yes 4mg Take 1 Unive rs 4 mg 7-03 tablet by ity of disintegrat 00:00: mouth [place] ing tablet 00 every 8 Medica l (eight) Branch hours as needed for Nausea and Vomiting (N/V). Vital Signs Vital Name Observation Time Observation Value Comments Source Systolic blood 2019-05-20 03:12:00 139 mm[Hg] [facility] Diastolic blood 2019-05-20 03:12:00 88 [facility] rate 2019-05-20 03:12:00 79 /min [facility] Respiratory rate 2019-05-20 03:12:00 18 /min [facility] Oxygen saturation in 2019-05-20 03:12:00 97 /min [facility] Arterial blood by [facility] Pulse oximetry Branch Body temperature 2019-05-20 00:20:00 36.67 [facility] Body weight 2019-05-20 00:20:00 136.079 kg [facility] BMI 2019-05-20 00:20:00 46.99 kg/m2 [facility] Procedures Procedure Date / Time Performed Performing Clinician Kendall e INCISION AND DRAINAGE 2019-05-20 01:50:[address] [facility] NOTICE OF PRIVACY 2019-05-20 00:14:35 Doctor Unassigned, No Univ [facility] CONSENT/REFUSAL FOR 2019-05-20 00:13:45 [facility] [place] TREATMENT Encounters Start End Encounter Admission Attending Care Care Encounter Source Date/Time Date/Time Type Type Clinicians Facility Department ID 2019-05-19 2019-05-19 Emergency MYRNA Romero [id number] [facility] 19:18:08 22:20:00 Xena Cook [id number] [place] [id number] [facility] [id number] Medi david 084 Branch Results This patient has no known results.
[2022-11-08] MEDS ORDERED: KETOROLAC 30 MG/ML INJ ONE (15:09)
[2022-11-08 15:33] LABS: Urine Blood Negative (Negative); Urine Glucose 1+ (Negative); Urine Protein Negative (Negative); Urine Specific Gravity >=1.030 (1.005-1.030)
[2022-11-08 16:08] LABS: Absolute Lymphocytes (CBC) 2.3 K/uL (0.7-4.9); Lymphocytes % 24.3 % (15.3-44.8); MCV 90.8 fL (80-100); MPV 7.9 fL (7.6-11.3); RBC Red Blood Cell Count 4.73 M/uL (3.86-4.86)
[2022-11-08 16:14] LABS: Urine Specific Gravity/Preg >1.030 (1.005-1.030)
[2022-11-08 16:24] LABS: Potassium 3.7 mmol/L (3.5-5.1)
[2022-11-08 16:51] LABS: Urine Bacteria <20 /HPF (<20); Urine Mucus 3+ /HPF (None Seen); Urine RBC <5 /HPF (None Seen)
--- NOTE | 2022-11-08 17:09 | RAD REPORT ---
EXAM DESCRIPTION: CT - CTFBWCON CLINICAL HISTORY: r/o orbital cellulitus Orbital pain and swelling. COMPARISON: No comparisonsNo comparisons TECHNIQUE: Axial 2 mm thick images of the face were obtained with sagittal and coronal reconstructio n images. All CT scans are performed using dose optimization technique as appropriate and may include automated exposure control or mA/KV adjustment according to patient size. FINDINGS: There is soft tissue swelling preseptal region right orbit. No evidence of retro bulbar in flammation or orbital cellulitis. The left side appears normal. Both globes are normal in size. No fracture seen. Small mucous retention cyst versus polyp right maxi llary antrum. IMPRESSION: Moderate preseptal cellulitis on the right.
--- NOTE | 2022-11-08 17:15 | EDPHYS ---
Physician Documentation [facility] Name: Champ Wills Age: 36 yrs Sex: Female : 1985 Arrival Date: 11/08/2022 Time: 14:45 Bed 12 Private MD: ED Physician Surendra Tyler HPI: 11/08 15:19 This 36 yrs old Female presents to ER via Ambulatory with complaints of Eye Swelling. sb4 15:19 The patient is experiencing pain, redness, tearing, The patient sustained None. to the sb4 right eye, caused by an unknown mechanism. Onset: The symptoms/episode began/occurred this morning. Aggravated by pressure, rubbing, Alleviated by warm compress. Associated signs and symptoms: Pertinent positives: chills, dizziness, headache, runny nose, Pertinent negatives: fever. Patient reports that she woke up this morning and noticed her right eye was very red and swollen. She has had stys in the past but never this severe. She says warm compresses have mildly improved the swelling but it continues to worsen. Reports some photophobia, swelling, tearing. NO pain with EOM. . MANAGER DISCOVERY: 14:55 LMP N/A - control method ll1 Historical: - Allergies: 14:52 No Known Allergies; ll1 - PMHx: 14:52 Diabetes - NIDDM; Hypertension; Hypothyroidism; Anxiety; ll1 - PSHx: 14:52 breast SX; ll1 - Immunization history:: Client reports receiving the 2nd dose of the Covid vaccine. - Social history:: Smoking status: Patient denies any tobacco usage or history of. ROS: 15:19 Constitutional: Negative for fever, chills, and weight loss, Cardiovascular: Negative sb4 for chest pain, palpitations, and edema, Respiratory: Negative for shortness of breath, cough, wheezing, and pleuritic chest pain, Abdomen/GI: Negative for abdominal pain, nausea, vomiting, diarrhea, and constipation, MS/Extremity: Negative for injury and deformity, Skin: Negative for injury, rash, and discoloration, Neuro: Negative for headache, weakness, numbness, tingling, and seizure. 15:19 Eyes: Positive for injury or acute deformity, itching, pain, photophobia, redness, swelling, tearing, Negative for icterus, matting, vision loss, visual disturbance. Exam: 15:19 Visual Acuity: I have reviewed the nursing documentation. sb4 15:19 Cardiovascular: Regular rate and rhythm with a normal S1 and S2. 15:19 Constitutional: This is a well developed, well nourished patient who is awake, alert, sb4 and in no acute distress. Head/Face: Normocephalic, atraumatic. ENT: Mucous membranes moist. Respiratory: Lungs have equal breath sounds bilaterally, clear to auscultation and percussion. No rales, rhonchi or wheezes noted. No increased work of breathing, no retractions or nasal flaring. Abdomen/GI: Soft, non-tender, no distension. Skin: Warm, dry with normal turgor. Normal color with no rashes, no lesions, and no evidence of cellulitis. MS/ Extremity: Pulses equal, no cyanosis. Neurovascular intact. Full, normal range of motion. 15:19 Eyes: Periorbital structures: erythema, that is mild, on the right upper eyelid, medial aspect of conjunctiva of right eye, lateral aspect of conjunctiva of right eye and right lower eyelid, swelling, that is moderate, on the right upper eyelid, medial aspect of conjunctiva of right eye, lateral aspect of conjunctiva of right eye and right lower eyelid, Extraocular movements: intact throughout, Conjunctiva: injected, in the right eye, tearing noted. Vital Signs: 14:52 BP 136 / 90; Pulse 93; Resp 17; Temp 98.3; Pulse Ox 97% on R/A; Weight 124.74 kg; ll1 Height 5 ft. 7 in. (170.18 cm); Pain 8/10; 17:30 BP 147 / 89; Pulse 88; Resp 17; Pulse Ox 97% ; ll1 14:52 Body Mass Index 43.07 (124.74 kg, 170.18 cm) ll1 MDM: 15:04 Patient medically screened. sb4 17:19 Differential diagnosis: preseptal cellulitus, orbital cellulitus, foreign body, stye, sb4 chalazion, atopic dermatitis. Data reviewed: vital signs, nurses notes, lab test result(s), radiologic studies, CT scan, I have discussed the patient's presentation/case with the attending Emergency Department Physician; and as a result, I will discharge patient. Consideration of Admission/Observation Escalation of care including admission/observation considered. Care significantly affected by the following chronic conditions: Diabetes. Response to treatment: the patient's symptoms have mildly improved after treatment, and as a result, I will discharge patient. 11/08 15:11 Order name: CBC with Diff; Complete Time: 16:29 sb4 11/08 15:11 Order name: BMP; Complete Time: 16:29 sb4 11/08 15:34 Order name: Urine Dipstick-Ancillary; Complete Time: 15:35 EDWA 11/08 16:12 Order name: Urine --Ancillary (enter results); Complete Time: 16:29 kj1 11/08 16:33 Order name: Urine Microscopic Only; Complete Time: 16:53 sb4 11/08 16:54 Order name: Urine Culture EDWA 11/08 15:11 Order name: Facial Bones W/ Con \T\ MPR CT; Complete Time: 17:11 sb4 11/08 15:11 Order name: Urine Test (obtain specimen); Complete Time: 15:28 sb4 Administered Medications: 05:25 Drug: Augmentin (Amoxicillin-Clavulanate) 875 mg Route: PO; ll1 17:30 Follow up: Response: No adverse reaction ll1 15:10 Drug: Ketorolac 30 mg Route: IM; Site: right deltoid; ap3 17:21 Follow up: Response: No adverse reaction; Pain is decreased; RASS: Alert and Calm (0) ll1 Disposition: 18:17 Co-signature as Attending Physician, Surendra Tyler MD I agree with the assessment and kdr plan of care. Disposition Summary: 11/08/22 17:14 Discharge Ordered Location: Home sb4 Problem: new sb4 Symptoms: have improved sb4 Condition: Stable sb4 Diagnosis - Preseptal Cellulitus- Right sb4 Followup: sb4 - With: Mariangel Muir MD - When: Tomorrow - Reason: Recheck today's complaints, Continuance of care, Re-evaluation by your physician Discharge Instructions: - Discharge Summary Sheet sb4 - Preseptal Cellulitis, Adult sb4 Forms: - Medication Reconciliation Form sb4 - Thank You Letter sb4 - Antibiotic Education sb4 - Prescription Opioid Use sb4 Prescriptions: - Augmentin 875-125 mg Oral Tablet - take 1 tablet by ORAL route every 12 hours for 10 days; 20 tablet; Refills: 0, sb4 Product Selection Permitted - Diclofenac Sodium 75 mg Oral Tablet Sustained Release - take 1 tablet by ORAL route 2 times per day; 30 tablet; Refills: 0, Product sb4 Selection Permitted - Tramadol 50 mg Oral Tablet - take 1 tablet by ORAL route every 8 hours as needed; 12 tablet; Refills: 0, sb4 Product Selection Permitted Signatures: Dispatcher [employer] Surendra Brody MD MD kdr Prokisch, Amanda, RN RN [email or web address] Sena Mosher RN RN ll1 Sheridan Barros, PAErik PAErik sb4
--- NOTE | 2022-11-08 17:15 | ER ---
Nurse's Notes [facility] Name: Champ Wills Age: 36 yrs Sex: Female : 1985 Arrival Date: 11/08/2022 Time: 14:45 Bed 12 Private MD: Diagnosis: Preseptal Cellulitus- Right Presentation: 11/08 14:52 Chief complaint: Patient states: R eyelid pain and swelling for 2 days, worse today. No ll1 fever. Coronavirus screen: Vaccine status: Patient reports receiving the 2nd dose of the covid vaccine. Client denies travel out of the [place] in the last 14 days. At this time, the client does not indicate any symptoms associated with coronavirus-19. Ebola Screen: Patient denies travel to an Ebola-affected area in the 21 days before illness onset. Initial Sepsis Screen: Does the patient meet any 2 criteria? No. Patient's initial sepsis screen is negative. Does the patient have a suspected source of infection? Yes: Skin breakdown/wound. Risk Assessment: Do you want to hurt yourself or someone else? Patient reports no desire to harm self or others. Onset of symptoms was November 07, 2022. 14:52 Method Of Arrival: Ambulatory ll1 14:52 Acuity: LANCE 3 ll1 Triage Assessment: 14:54 General: Appears uncomfortable, Behavior is calm, cooperative, appropriate for age. ll1 Pain: Complains of pain in right eye Quality of pain is described as aching. Neuro: No deficits noted. Cardiovascular: No deficits noted. Respiratory: No deficits noted. Derm: red bump to R upper eyelid with surrounding tissue redness. No drainage or fever. ANALYTICAL DATA MINER: 14:55 LMP N/A - control method ll1 Historical: - Allergies: 14:52 No Known Allergies; ll1 - PMHx: 14:52 Diabetes - NIDDM; Hypertension; Hypothyroidism; Anxiety; ll1 - PSHx: 14:52 breast SX; ll1 - Immunization history:: Client reports receiving the 2nd dose of the Covid vaccine. - Social history:: Smoking status: Patient denies any tobacco usage or history of. Screenin:55 Abuse screen: Denies threats or abuse. Nutritional screening: No deficits noted. ll1 Tuberculosis screening: No symptoms or risk factors identified. 14:55 [facility] ED Fall Risk Assessment (Adult) Score/Fall Risk Level 0 - 2 = Low Risk ll1 Oriented to surroundings, Maintained a safe environment, Educated pt \T\ family on fall prevention, incl call for assistance when getting out of bed, Hourly rounding (assess needs \T\ fall precautionary measures) done. Assessment: 15:39 Reassessment: No changes from previously documented assessment. Patient and/or family ll1 updated on plan of care and expected duration. Pain level reassessed. Patient is alert, oriented x 3, equal unlabored respirations, skin warm/dry/pink. 16:35 Reassessment: No changes from previously documented assessment. Patient and/or family ll1 updated on plan of care and expected duration. Pain level reassessed. Patient is alert, oriented x 3, equal unlabored respirations, skin warm/dry/pink. 16:53 Reassessment: PT back from CT at this time. ss 17:30 Reassessment: No changes from previously documented assessment. Patient and/or family ll1 updated on plan of care and expected duration. Pain level reassessed. Patient is alert, oriented x 3, equal unlabored respirations, skin warm/dry/pink. Vital Signs: 14:52 BP 136 / 90; Pulse 93; Resp 17; Temp 98.3; Pulse Ox 97% on R/A; Weight 124.74 kg; ll1 Height 5 ft. 7 in. (170.18 cm); Pain 8/10; 17:30 BP 147 / 89; Pulse 88; Resp 17; Pulse Ox 97% ; ll1 14:52 Body Mass Index 43.07 (124.74 kg, 170.18 cm) ll1 ED Course: 14:45 Patient arrived in ED. rg4 14:52 Arm band placed on Patient placed in an exam room, on a stretcher. ll1 14:54 Triage completed. ll1 14:54 Sheridan Barros [facility]C [facility] sb4 14:54 Surendra Tyler MD is Attending Physician. sb4 14:55 Patient has correct armband on for positive identification. Call light in reach. Side ll1 rails up X 1. Cardiac monitoring not applicable on this patient. 15:05 Josselin Viramontes, ANDRES is Primary Nurse. ap3 15:26 Inserted saline lock: 22 gauge in left upper arm, using aseptic technique. ap3 15:57 BMP Sent. ss 15:57 CBC with Diff Sent. ss 16:37 Urine Microscopic Only Sent. ll1 16:50 Facial Bones W/ Con \T\ MPR CT In Process Unspecified. EDMS 17:12 Mariangel Muir MD is Referral Physician. sb4 17:30 No provider procedures requiring assistance completed. IV discontinued, intact, ll1 bleeding controlled, No redness/swelling at site. Pressure dressing applied. Administered Medications: 05:25 Drug: Augmentin (Amoxicillin-Clavulanate) 875 mg Route: PO; ll1 17:30 Follow up: Response: No adverse reaction ll1 15:10 Drug: Ketorolac 30 mg Route: IM; Site: right deltoid; ap3 17:21 Follow up: Response: No adverse reaction; Pain is decreased; RASS: Alert and Calm (0) ll1 Medication: 14:55 VIS not applicable for this client. ll1 Outcome: 17:14 Discharge ordered by MD. sb4 17:31 Discharged to home ambulatory. ll1 17:31 Condition: stable 17:31 Discharge instructions given to patient, Instructed on discharge instructions, follow up and referral plans. no drinking with medication, no driving heavy equipment, medication usage, Demonstrated understanding of instructions, follow-up care, medications, Prescriptions given X 3. 17:31 Patient left the ED. ll1 Addendum: 11/11/2022 07:38 Addendum: Culture Results: Positive urine culture. No further action required. Bacteria e b sensitive to prescribed antibiotic. Signatures: Dispatcher [employer] [facility] Bhavani Perla RN RN ss Garcia, Rubi rg4 Josselin Viramontes RN RN ap3 Sharon Moya Lynsay, RN RN ll1 Sheridan Barros PA-C PAErik sb4 Corrections: (The following items were deleted from the chart) 11/08 15:14 14:52 Acuity: LANCE 4 ll1 ll1
[2022-11-08] MEDS ORDERED: AMOX/K CLAV 875 MG TAB ONE (17:26)
[2022-11-08 17:56] VITALS: TEMP 98.3; O2SAT 97
[2022-11-08 18:06] VITALS: BP 147/89
== END 2022-11-08 17:31 | disposition home or self-care (01) ==
LOC: ER 14:42
DX: L03.213 Periorbital cellulitis (principal); I10 Essential (primary) hypertension
CPT/HCPCS: 87088; 85025; 87086; 80048; 36415; 81025; 87077; 87186; 70487; 76377; 96372; 99284; Q9967; 81003; 81015

== ENCOUNTER 2023-01-09 08:35 | Observation (INO) | payer BC ==
--- OUTSIDE RECORDS SUMMARY | 2023-01-09 08:38 | XMS REPORT | Continuity of Care Document ---
:1985 Author Organization [facility] t Address [address] [place] [address] Care Team Providers Name Role Phone Xena Romreo NP Attending Clinician Problems Condition Condition Condition Status Onset Resolution Last Treating Co mments Source Name Details Category Date Date Treatment Clinician Date No known No known Disease Unive rs active active ity of problems problems [facility] Allergies, Adverse Reactions, Alerts This patient has no known allergies or adverse reactions. Social History Social Habit Start Date Stop Date Quantity Comments [facility] Sm[facility] Status Start Date Stop Date Source Unknown if ever smoked [facility] Medications Ordered Filled Start Stop Current Ordering Indication Dosage Frequency Signature Comments Components Source Medication Medication Date Date Medication? Clinician (SIG) Name Name lidocaine-p 2019- No 5g Topical, U nivers rilocaine 05-20 ONCE, 1 ity of (EMLA) 02:45: 01:43 dose, [facility] 2.5-2.5 % 00 :00 05/19/19 at [facility] david cream 5 g 2144, NATA Bran ch doxycycline 2019- No 100mg 100 mg, U nivers (Vibramycin 05-20 Oral, ity of ) capsule 02:30: 01:46 [place] 100 [place] :00 dose, [facility] 05/19/19 at [place] [address]130, NATA
Re ason for Anti-Infec tive: [...] NATA Br anch traMADol 50 2018-0 Yes [id number] 50mg Take 1 Univers mg tablet -30 tablet by ity o f 00:00: mouth [place] 00 every 6 Medical (six) Branch hours as needed for Pain (scale 4-6). etodolac Yes [id number] 400mg Take 1 Un louann (LODINE) 7-30 tablet by ity of 400 mg 00:00: mouth 3 [place] tablet 00 (three) Medical times Branch daily. doxycycline 2019- No [id number] 100mg Take 1 Univers 100 mg 05-19 08-14 capsule by ity of capsule 00:00: 04:59 mouth 2 [place] 00 :00 (two) Medical times Branch daily for 14 days. Levothyroxi Yes 80ug Take 80 Uni vers ne 75 mcg 7-03 mcg by ity of capsule 15:58: mouth. [place] [facility] hydroCHLORO Yes 25mg Take 25 mg Univers thiazide 25 03 by mouth ity of mg tablet 15:58: daily. [place] [facility] norgestimat Yes 1{tbl} Take 1 Un louann e-ethinyl 7-03 tablet by ity o f estradiol 15:58: mouth [place] (TRI-LO-MAR 01 daily. Medica l CHENCHO) Branch 0.18/0.215/ [...] hours as needed for Pain (scale 1-3). BELKIS ODT 2017-0 Yes 4mg Take 1 Unive rs 4 mg 7-03 tablet by ity of disintegrat 00:00: mouth [place] ing tablet 00 every 8 Medica l (eight) Branch hours as needed for Nausea and Vomiting (N/V). Vital Signs Vital Name Observation Time Observation Value Comments Source Systolic blood 2019-05-20 03:12:00 139 mm[Hg] [facility] Diastolic blood 2019-05-20 03:12:00 88 mm[facility]Hg[facility] rate 2019-05-20 03:12:00 79 /min [facility] Respiratory rate 2019-05-20 03:12:00 18 /min [facility] Oxygen saturation in 2019-05-20 03:12:00 97 /min [facility] Arterial blood by [facility] [place] [facility] Pulse oximetry Branch Body temperature 2019-05-20 00:20:00 36.67 [facility] Body weight 2019-05-20 00:20:00 136.079 kg [facility] BMI 2019-05-20 00:20:00 46.99 kg/m2 [facility] Procedures Procedure Date / Time Performed Performing Clinician Denis jasso INCISION AND DRAINAGE 2019-05-20 01:50:[address] [facility] NOTICE OF PRIVACY 2019-05-20 00:14:35 Doctor Unassigned, No [facility] CONSENT/REFUSAL FOR 2019-05-20 00:13:45 Doctor Unassigned, No [facility] TREATMENT Encounters Start End Encounter Admission Attending Care Care Encounter Source Date/Time Date/Time Type Type Clinicians Facility Department ID 2019-05-19 2019-05-19 Emergency MYRNA Romero [id number] [facility] 19:18:08 22:20:00 Xena Cook [id number] [place] [id number] [facility] [id number] [facility] 084 Branch Results This patient has no known results.
[2023-01-09 09:30] LABS: Absolute Lymphocytes (CBC) 2.2 K/uL (0.7-4.9); Hematocrit 44.6 % (36.0-45.0); MCV 90.8 fL (80-100); MPV 7.7 fL (7.6-11.3); RBC Red Blood Cell Count 4.92 M/uL (3.86-4.86)
[2023-01-09 09:47] LABS: Albumin 3.5 g/dL (3.4-5.0); Bilirubin Total 0.5 mg/dL (0.2-1.0); Potassium 3.8 mEq/L (3.5-5.1); Protein, Total 7.5 g/dL (6.4-8.2)
[2023-01-09 09:49] LABS: Protime INR 0.98
--- NOTE | 2023-01-09 09:55 | RAD REPORT ---
EXAM DESCRIPTION: Rafa Single View01/09/2023 9:29 am CLINICAL HISTORY: Breast abscess/sepsis COMPARISON: none FINDINGS: The lungs appear clear of acute infiltrate. The heart is normal size IMPRESSION: No acute abnormalities displayed
[2023-01-09] MEDS ORDERED: HYDROMORPHONE HCL 1 MG/ML INJ ONE (10:12)
--- NOTE | 2023-01-09 10:43 | RAD REPORT ---
EXAM DESCRIPTION: US - BREAST/AXILLA, LIMITED - 01/09/2023 9:58 am CLINICAL HISTORY: Breast pain and mass COMPARISON: None FINDINGS: Within the inferior retroareolar region is a 3.3 x 1 x 2.3 centimeter complex fluid fille d mass. There is increased vascularity in the periphery. This has the appearance of an abscess IMPRESSION: 3.3 centimeter abscess right breast
--- NOTE | 2023-01-09 11:45 | EDPHYS ---
Physician Documentation [facility] Name: Champ Wills Age: 37 yrs Sex: Female : 1985 Arrival Date: 01/09/2023 Time: 08:39 Bed 20 Private MD: Edison Salas T ED Physician Luis Angel Zhang HPI: 01/09 09:04 This 37 yrs old Female presents to ER via Ambulatory with complaints of Breast Problem snw - pain/swelling. 09:04 Onset: The symptoms/episode began/occurred acutely, yesterday. Associated signs and snw symptoms: Pertinent positives: fever, chills, fatigue, tenderness to right breast. Modifying factors: The patient symptoms are alleviated by nothing, the patient symptoms are aggravated by pressure. The patient has experienced a previous episode. The patient has not recently seen a physician. Historical: - Allergies: 08:51 No Known Allergies; ss - Home Meds: 08:51 metformin 500 mg Oral Tb24 1 tab once daily [Active]; Abilify Oral [Active]; valsartan ss [Active]; atorvastatin oral [Active]; levothyroxine oral [Active]; - PMHx: 08:51 Anxiety; Hypertension; Hypothyroidism; Diabetes - NIDDM; ss - PSHx: 08:51 Breast sx; ss - Immunization history:: Client reports receiving the 2nd dose of the Covid vaccine. - Social history:: Smoking status: Patient denies any tobacco usage or history of. ROS: 09:02 Eyes: Negative for injury, pain, redness, and discharge, ENT: Negative for injury, snw pain, and discharge, Neck: Negative for injury, pain, and swelling, Cardiovascular: Negative for chest pain, palpitations, and edema, Respiratory: Negative for shortness of breath, cough, wheezing, and pleuritic chest pain, Abdomen/GI: Negative for abdominal pain, nausea, vomiting, diarrhea, and constipation, Back: Negative for injury and pain, : Negative for injury, bleeding, discharge, and swelling, MS/Extremity: Negative for injury and deformity, Neuro: Negative for headache, weakness, numbness, tingling, and seizure, Psych: Negative for depression, anxiety, suicide ideation, homicidal ideation, and hallucinations. 09:02 Constitutional: Positive for body aches, chills, fever, poor PO intake. 09:02 Skin: Positive for swelling, of the right breast, tenderness, discharge . Exam: 08:59 Constitutional: This is a well developed, well nourished patient who is awake, alert, snw and in no acute distress. Head/Face: Normocephalic, atraumatic. Eyes: Pupils equal round and reactive to light, extra-ocular motions intact. Lids and lashes normal. Conjunctiva and sclera are non-icteric and not injected. Cornea within normal limits. Periorbital areas with no swelling, redness, or edema. ENT: Nares patent. No nasal discharge, no septal abnormalities noted. Tympanic membranes are normal and external auditory canals are clear. Oropharynx with no redness, swelling, or masses, exudates, or evidence of obstruction, uvula midline. Mucous membranes moist. Neck: Trachea midline, no thyromegaly or masses palpated, and no cervical lymphadenopathy. Supple, full range of motion without nuchal rigidity, or vertebral point tenderness. No Meningismus. Chest/axilla: Normal chest wall appearance and motion. Nontender with no deformity. No lesions are appreciated. right medial breast with tenderness, induration, minimal erythema at 3 O'clock position at site of remote abscess Cardiovascular: Regular rate and rhythm with a normal S1 and S2. No gallops, murmurs, or rubs. Normal PMI, no JVD. No pulse deficits. Respiratory: Lungs have equal breath sounds bilaterally, clear to auscultation and percussion. No rales, rhonchi or wheezes noted. No increased work of breathing, no retractions or nasal flaring. Back: No spinal tenderness. No costovertebral tenderness. Full range of motion. Skin: Warm, dry with normal turgor. Normal color with no rashes, no lesions, and no evidence of cellulitis. MS/ Extremity: Pulses equal, no cyanosis. Neurovascular intact. Full, normal range of motion. Neuro: Awake and alert, GCS 15, oriented to person, place, time, and situation. Cranial nerves II-XII grossly intact. Motor strength 5/5 in all extremities. Sensory grossly intact. Cerebellar exam normal. Normal gait. Psych: Awake, alert, with orientation to person, place and time. Behavior, mood, and affect are within normal limits. Vital Signs: 08:48 BP 109 / 78; Pulse 89; Resp 16; Temp 98.5(O); Pulse Ox 99% on R/A; Weight 145.15 kg; ss Height 5 ft. 7 in. ; Pain 8/10; 10:12 BP 117 / 77; Pulse 85; Pulse Ox 95% on R/A; ap3 11:11 BP 102 / 67; Pulse 72; Pulse Ox 96% on R/A; ap3 12:51 BP 107 / 74; Pulse 84; Resp 18; Pulse Ox 100% on R/A; mb9 08:48 Body Mass Index 50.12 (145.15 kg, 170.18 cm) ss 08:48 Pain Scale: Adult ss MDM: 08:47 Patient medically screened. rt 09:19 Differential diagnosis: bacterial infection, mastitis, sepsis. snw 10:30 Response to treatment: the patient's symptoms have markedly improved after treatment. snw 11:24 Data reviewed: vital signs, nurses notes. Management of patient was discussed with the snw following: Substation Electrician Supervisor: Dr. Morton. NPO post MN. Pt to be admitted by Hospitalist program. Discussed with them and Pt will be admitted to Dr. Stokes. I considered the following discharge prescriptions or medication management in the emergency department Medications were administered in the Emergency Department. See MAR. Counseling: I had a detailed discussion with the patient and/or guardian regarding: the historical points, exam findings, and any diagnostic results supporting the discharge/admit diagnosis, lab results, radiology results, the need for further work-up and treatment in the hospital. ED course: Pt aware of need for admission and will make animal care service worker arrangements. . 01/09 08:57 Order name: Blood Culture Adult (2) snw 01/09 08:57 Order name: CBC with Diff; Complete Time: 10:45 snw 01/09 08:57 Order name: CMP; Complete Time: 10:45 snw 01/09 08:57 Order name: Lactate w/ 2H reflex if indic.; Complete Time: 10:45 snw 01/09 08:57 Order name: Protime (+inr); Complete Time: 10:45 snw 01/09 08:57 Order name: Ptt, Activated; Complete Time: 10:45 snw 01/09 08:57 Order name: Urinalysis w/ reflexes snw 01/09 14:10 Order name: Phosphorus; Complete Time: 14:24 EDMS 01/09 14:10 Order name: Magnesium; Complete Time: 14:24 EDMS 01/09 14:14 Order name: Lipid Profile; Complete Time: 14:24 EDMS 01/09 14:25 Order name: Hemoglobin A1c; Complete Time: 14:36 EDMS 01/09 16:39 Order name: Glucose, Ancillary Testing; Complete Time: 16:40 EDMS 01/09 08:57 Order name: Chest Single View XRAY; Complete Time: 10:45 snw 01/09 09:02 Order name: BREAST/AXILLA, LIMITED; Complete Time: 10:45 EDMS 01/09 08:57 Order name: EKG; Complete Time: 08:57 snw 01/09 11:28 Order name: Diet [address]; Complete Time: 11:29 snw 01/09 15:38 Order name: Diet [address]; Complete Time: 15:39 eb 01/09 08:57 Order name: Accucheck; Complete Time: 10:39 snw 01/09 08:57 Order name: Cardiac monitoring; Complete Time: 09:25 snw 01/09 08:57 Order name: EKG - Nurse/Tech; Complete Time: 09:25 snw 01/09 08:57 Order name: IV Saline Lock - Large Bore; Complete Time: 09:26 snw 01/09 08:57 Order name: Labs collected and sent; Complete Time: 09:26 snw 01/09 08:57 Order name: O2 Per Protocol; Complete Time: 09:26 snw 01/09 08:57 Order name: O2 Sat Monitoring; Complete Time: 09:26 snw 01/09 08:57 Order name: Vital Signs; Complete Time: 09:26 snw EC:20 Rate is 87 beats/min. Rhythm is regular. QRS [place] is Normal. MT interval is normal. QRS snw interval is normal. Clinical impression: NSR w/ Non-specific ST/T Changes. Administered Medications: 10:13 Drug: HYDROmorphone IVP 1 mg {Note: pain 10/10.} Route: IVP; Site: right wrist; ap3 11:34 Follow up: Response: No adverse reaction; Pain is decreased ap3 11:34 Drug: vancoMYCIN IVPB 1.5 grams Route: IVPB; Rate: calculated rate; Site: left wrist; ap3 Disposition: 18:09 Co-signature as Attending Physician, Luis Angel Zhang MD I reviewed the patient's care rt provided by the Advanced Practice Provider and agree with the diagnosis and treatment plan. Disposition Summary: 01/09/23 11:45 Hospitalization Ordered Hospitalization Status: Observation snw Provider: Vlad Stokes Location: Telemetry/MedSurg (observation) snw Condition: Stable snw Problem: new snw Symptoms: are unchanged snw Bed/Room Type: Standard snw Room Assignment: 411(01/09/23 16:22) eb Diagnosis - Abscess of the breast and nipple snw - Diabetes mellitus due to underlying condition with hyperglycemia snw Forms: - Medication Reconciliation Form snw - SBAR form snw Signatures: Dispatcher [employer] EDMS Dianne Ardon, SUZANNE-C JUNIOR ACCOUNTING CLERK-Csnw Bhavani Perla RN RN ss Josselin Viramontes RN RN ap3 Sharon Moya Ryan, MD MD rt Corrections: (The following items were deleted from the chart) 09:02 08:57 Extrmty Nonvasular Limited+US.RAD.BRZ ordered. EDMS EDMS 16:22 11:45 snw eb
--- NOTE | 2023-01-09 11:45 | ER ---
Nurse's Notes [facility] Name: Champ Wills Age: 37 yrs Sex: Female : 1985 Arrival Date: 01/09/2023 Time: 08:39 Bed 20 Private MD: Edison Salas T Diagnosis: Abscess of the breast and nipple;Diabetes mellitus due to underlying condition with hyperglycemia Presentation: 01/09 08:48 Chief complaint: Patient states: Redness, swelling and pain to R breast x 3 days. Pt ss reports a hx of mastitis and states that it feels the same as when she had it 10 years ago. Coronavirus screen: Client denies travel out of the [place] in the last 14 days. Ebola Screen: Patient denies exposure to infectious person. Patient denies travel to an Ebola-affected area in the 21 days before illness onset. Initial Sepsis Screen: Does the patient meet any 2 criteria? No. Patient's initial sepsis screen is negative. Does the patient have a suspected source of infection? No. Patient's initial sepsis screen is negative. Risk Assessment: Do you want to hurt yourself or someone else? Patient reports no desire to harm self or others. Onset of symptoms was January 06, 2023. 08:48 Method Of Arrival: Ambulatory ss 08:48 Acuity: LANCE 3 ss Triage Assessment: 09:26 General: Appears uncomfortable, Behavior is calm, cooperative, appropriate for age. ap3 Pain: Complains of pain in right breast Pain began gradually, 2-3 days ago. Neuro: Level of Consciousness is awake, alert, obeys commands, Oriented to person, place, time, situation. Cardiovascular: Patient's skin is warm and dry. Respiratory: Airway is patent Respiratory effort is even, unlabored, Respiratory pattern is regular, symmetrical. Historical: - Allergies: 08:51 No Known Allergies; ss - Home Meds: 08:51 metformin 500 mg Oral Tb24 1 tab once daily [Active]; Abilify Oral [Active]; valsartan ss [Active]; atorvastatin oral [Active]; levothyroxine oral [Active]; - PMHx: 08:51 Anxiety; Hypertension; Hypothyroidism; Diabetes - NIDDM; ss - PSHx: 08:51 Breast sx; ss - Immunization history:: Client reports receiving the 2nd dose of the Covid vaccine. - Social history:: Smoking status: Patient denies any tobacco usage or history of. Screenin:26 [facility] ED Fall Risk Assessment (Adult) History of falling in the last 3 months, ap3 including since admission No falls in past 3 months (0 pts). Abuse screen: Denies threats or abuse. Nutritional screening: No deficits noted. Tuberculosis screening: No symptoms or risk factors identified. Assessment: 09:27 General: Appears uncomfortable, Behavior is calm, cooperative. Pain: Complains of pain ap3 in right breast. Neuro: Level of Consciousness is awake, alert, obeys commands, Oriented to person, place, time. Cardiovascular: Patient's skin is warm and dry. Respiratory: Airway is patent Respiratory effort is even, unlabored, Respiratory pattern is regular, symmetrical. 10:12 Reassessment: Patient and/or family updated on plan of care and expected duration. Pain ap3 level reassessed. Patient is alert, oriented x 3, equal unlabored respirations, skin warm/dry/pink. patient reports pain 1010. 12:07 Reassessment: Received report from ANDRES Schwab. mb9 12:50 General: Appears in no apparent distress. Behavior is calm, cooperative. Pain: mb9 Complains of pain in right breast. Neuro: Level of Consciousness is awake, alert, obeys commands, Oriented to person, place, time, situation. Cardiovascular: Patient's skin is warm and dry. Respiratory: Airway is patent Respiratory effort is even, unlabored, Respiratory pattern is regular, symmetrical. Derm: Skin is pink, warm \T\ dry. 15:44 Reassessment: see [facility] for further charting. mb9 Vital Signs: 08:48 BP 109 / 78; Pulse 89; Resp 16; Temp 98.5(O); Pulse Ox 99% on R/A; Weight 145.15 kg; ss Height 5 ft. 7 in. ; Pain 8/10; 10:12 BP 117 / 77; Pulse 85; Pulse Ox 95% on R/A; ap3 11:11 BP 102 / 67; Pulse 72; Pulse Ox 96% on R/A; ap3 12:51 BP 107 / 74; Pulse 84; Resp 18; Pulse Ox 100% on R/A; mb9 08:48 Body Mass Index 50.12 (145.15 kg, 170.18 cm) ss 08:48 Pain Scale: Adult ss ED Course: 08:39 Patient arrived in ED. am2 08:39 Edison Salas MD is Private Physician. am2 08:46 Luis Angel Zhang MD is Attending Physician. rt 08:47 Dianne Ardon FNP-C is PSYCHIATRICP. snw 08:51 Triage completed. ss 08:51 Arm band placed on right wrist. ss 09:18 Initial lab(s) drawn, by me, sent to lab. First set of blood cultures drawn by me. ap3 Inserted saline lock: 22 gauge in right wrist, using aseptic technique. 09:22 Second set of blood cultures drawn by me. ap3 09:24 Josselin Viramontes, ANDRES is Primary Nurse. ap3 09:27 Patient has correct armband on for positive identification. Placed in gown. Bed in low ap3 position. Call light in reach. Side rails up X2. bench assembler on. Pulse ox on. NIBP on. Door closed. Noise minimized. Warm blanket given. 09:30 Chest Single View XRAY In Process Unspecified. EDMS 09:43 BREAST/AXILLA, LIMITED In Process Unspecified. EDMS 11:44 Vlad Stokes is Hospitalizing Provider. snw Administered Medications: 10:13 Drug: HYDROmorphone IVP 1 mg {Note: pain 07/30.} Route: IVP; Site: right wrist; ap3 11:34 Follow up: Response: No adverse reaction; Pain is decreased ap3 11:34 Drug: vancoMYCIN IVPB 1.5 grams Route: IVPB; Rate: calculated rate; Site: left wrist; ap3 Outcome: 11:45 Decision to Hospitalize by Provider. snw 16:46 Patient left the ED. mb9 Signatures: Dispatcher [employer] EDMS Dianne Ardon FNP-C PRECINCT I POLICE SERGEANT-Csnw Bhavani Perla RN RN ss Moreno, Amanda am2 Josselin Viramontes RN RN ap3 Breneman, Mary Beth, RN RN mb9 Luis Angel Zhang MD MD rt
[2023-01-09] MEDS ORDERED: VANCOMYCIN 1.5 GM in NA CHLORIDE 0.9% 500 ML IVPB ONE (12:00)
[2023-01-09] MEDS ORDERED: ACETAMINOPHEN 325 MG TABLET PO PRN (13:03)
[2023-01-09] MEDS ORDERED: ONDANSETRON 4 MG/2 ML VIAL IV PRN (13:08)
--- NOTE | 2023-01-09 13:09 | P.HP ---
Certification for Inpatient Patient admitted to: Observation With expected LOS: <2 Midnights Patient will require the following post-hospital care: None Practitioner: I am a practitioner with admitting privileges, knowledge of patient current condition, hospital course, and medical plan of care. Services: Services provided to patient in accordance with Admission requirements found in Title 42 Section 412.3 of the Code of Federal Regulations Patient History Date of Service: 01/09/23 Reason for admission: Right breast abscess History of Present Illness: Patient is a 37-year-old female with a past medical history significant for hypothyroidism, hypertension, DM 2, anxiety disorder, morbid obesity who presents with complaint of right breast pain\swelling and redness onset 3 days ago. Patient rated pain as 7/10 in severity and described pain as throbbing in quality. She indicated that pain radiates to her right arm. Patient reported associated signs and symptoms of fever, chills and fatigue. Patient denies any other signs or symptoms. Symptoms are aggravated or relieved by nothing. Patient decided to present to the hospital due to worsening symptoms. Allergies No Known Allergies Allergy (Unverified 03/03/15 02:38) - Past Medical/Surgical History -: HTN -: HLD -: Anxiety Disorder -: DM 2 -: Morbid Obesity -: - Family History Family History: Reviewed- Non-Contributory - Social History Smoking Status: Former smoker Alcohol use: Yes CD- Drugs: No Caffeine use: Yes Place of Residence: Home Review of Systems General: Fever, Chills Eyes: Unremarkable ENT: Unremarkable Respiratory: Unremarkable Cardiovascular: Unremarkable Genitourinary: Unremarkable Musculoskeletal: Unremarkable Integumentary: Other (Right breast redness\swelling\pain) Neurological: Weakness Lymphatics: Unremarkable Physical Examination - Physical Exam General: Alert, In no apparent distress, Oriented x3, Cooperative HEENT: Atraumatic, PERRLA, Mucous membr. moist/pink, EOMI, Sclerae nonicteric Neck: Supple, 2+ carotid pulse no bruit, No LAD, Without JVD or thyroid abnormality Respiratory: Clear to auscultation bilaterally, Normal air movement Cardiovascular: No edema, Regular rate/rhythm, Normal S1 S2 Capillary refill: <2 Seconds Gastrointestinal: Normal bowel sounds, Soft and benign, No tenderness Musculoskeletal: No clubbing, No tenderness Integumentary: Tenderness/swelling, Erythema Neurological: Normal speech, Normal tone, Normal affect Lymphatics: No axilla or inguinal lymphadenopathy - Studies Laboratory Data (last 24 hrs) 01/09/23 09:18: PT 10.8, INR 0.98, APTT 31.0 01/09/23 09:18: Sodium 137, Potassium 3.8, BUN 15, Creatinine 0.69, Glucose 193 H, Total Bilirubin 0.5, AST 24, ALT 50, Alkaline Phosphatase 58 01/09/23 09:18: WBC 8.80, Hgb 15.1 H, Hct 44.6, Plt Count 294 Assessment and Plan - Plan -- Right breast abscess. Right breast ultrasound indicates a 3.3 cm abscess right breast. Surgeon consulted. Plans an I&D in a.m. Patient placed on antibiotics. Continue supportive care. --Acute pain. We will manage pain with current pain medication regimen. --DM2 with hyperglycemia. Hemoglobin A1c is 8.9. BS monitoring with sliding scale insulin. --Anxiety disorder. Stable. Continue Supportive care. --Hypertension. Stable. Continue home medication. --Hyperlipidemia. Continue statin. --Hypothyroidism. Continue Synthroid. --Obesity. BMI greater than 50. Patient counseled on weight reduction, diet and excise therapy. --UTI POA. Symptomatic-- fever and chills. UA positive leukocyte esterase. Patient placed on empirical antibiotics. Urine cultures pending. -- DVT prophylaxis SCDs. Discharge Plan: Home Plan to discharge in: 48 Hours - Advance Directives Does patient have a Living Will: No Does patient have a Durable POA for Healthcare: No - Code Status/Comfort Care Code Status Assessed: Yes Physician Review: Patient Assessed, Agree with Above Assessment and Plan Critical Care: No
[2023-01-09 14:10] LABS: Magnesium 1.9 mg/dL (1.6-2.4); Phosphorus 2.5 mg/dL (2.5-4.9)
[2023-01-09 15:13] VITALS: BMI 50.1
[2023-01-09] MEDS ORDERED: ONDANSETRON 4 MG/2 ML VIAL ONE (15:24)
[2023-01-09] MEDS ORDERED: MORPHINE 4 MG/ML SYR ONE (15:24)
[2023-01-09] MEDS: MORPHINE 4 MG/ML SYR IV PRN ×2 (15:26→18:32)
[2023-01-09] MEDS: CLINDAMYCIN 600MG/D5W 50 ML IV SCH (16:11)
[2023-01-09] MEDS: INSULIN -REGULAR HUMAN 50 UNIT/0.5 ML ML SQ SCH ×2 (16:30→21:30)
[2023-01-09] MEDS ORDERED: INSULIN -REGULAR HUMAN 50 UNIT/0.5 ML ML ONE (16:36)
[2023-01-09] MEDS: CEFEPIME 1 GM in NA CHLORIDE 0.9% 100 ML IV SCH (17:04)
[2023-01-09] MEDS ORDERED: HYDROMORPHONE HCL 1 MG/ML INJ IV ONE (21:02)
[2023-01-10] MEDS: CEFEPIME 1 GM in NA CHLORIDE 0.9% 100 ML IV SCH ×2 (00:23→08:40)
[2023-01-10] MEDS: CLINDAMYCIN 600MG/D5W 50 ML IV SCH ×2 (00:23→09:00)
[2023-01-10 00:59] LABS: Specific Gravity > 1.030 (1.005-1.030); Urine Bacteria None Seen /HPF (<20); Urine Bilirubin NEGATIVE (Negative); Urine Blood Negative (Negative); Urine Clarity Turbid (Clear); Urine Color Yellow (Yellow); Urine Glucose 2+ (Negative); Urine Mucus 3+ /HPF (None Seen); Urine Protein TRACE (Negative); Urine RBC <5 /HPF (None Seen); Urine Urobilinogen Normal (Normal); Urine pH 5.5 (5.0-7.0)
[2023-01-10 03:42] LABS: Absolute Lymphocytes (CBC) 2.6 K/uL (0.7-4.9); Hematocrit 40.3 % (36.0-45.0); MCV 91.3 fL (80-100); MPV 7.8 fL (7.6-11.3); RBC Red Blood Cell Count 4.41 M/uL (3.86-4.86)
[2023-01-10 04:04] LABS: Phosphorus 3.3 mg/dL (2.5-4.9); Potassium 3.7 mEq/L (3.5-5.1)
[2023-01-10] MEDS: MORPHINE 4 MG/ML SYR IV PRN (04:33)
[2023-01-10] MEDS ORDERED: NA CHLORIDE 0.9% 500 ML ONE (06:23)
[2023-01-10] MEDS ORDERED: KCL 20 MEQ/100 mL IVPB 20 MEQ/100 ML BAG IV SCH (07:00)
[2023-01-10] MEDS: INSULIN -REGULAR HUMAN 50 UNIT/0.5 ML ML SQ SCH ×2 (07:30→12:06)
[2023-01-10 08:32] LABS: Specific Gravity > 1.030 (1.005-1.030)
[2023-01-10] MEDS ORDERED: NA CHLORIDE 0.9% 1,000 ML ONE (08:32)
[2023-01-10] MEDS ORDERED: ENOXAPARIN 40 MG/0.4 ML SQ SCH (09:00)
[2023-01-10] MEDS: BUPIVACAINE 0.25% PF 10 ML VIAL ONE ×2 (09:18→10:45)
--- NOTE | 2023-01-10 09:31 | CON ---
Date of Consultation: 01/10/2023 Brief History Of Present Illness: The patient is a 37-year-old female with past medical history sign ificant for hypothyroidism, hypertension, diabetes type 2, anxiety disorder, morbid obesity, who pres ents with complaints of right breast pain beginning approximately 3 days prior to her presentation to the hospital. It was 7/10 in intensity. She states that she had some drainage from the nipple-areo lar complex associated with this. She has had multiple breast surgeries before in the past for absce sses in bilateral breasts, 1 was done specifically in this area approximately 6 to 7 years ago and sh e has noted recurrence of symptoms and as such came to the emergency room with the above-stated compl aints. She also states that she has had a mammogram, which was normal as of 2 years ago and she has not had any other complaints. No weight changes or any other breast related changes she is aware of. Past Medical History: Hypertension, hyperlipidemia, anxiety disorder, diabetes, morbid obesity. Past Surgical History: Includes and multiple breast surgeries for incision and drainage fo r abscesses in bilateral breasts. Family History: Reviewed, noncontributory. Social History: She denies current smoking. She has a past history of smoking cigarettes. She drin ks alcohol recreationally. Allergies: NO KNOWN DRUG ALLERGIES. Physical Examination: Vital Signs: Revealed her BMI was 50.1, blood pressure 125/66, pulse 76, respiratory rate 18, temper ature 96.5. General: She is awake, alert, oriented. Psychiatric: She is appropriate, conversive. HEENT: She is normocephalic, sclerae anicteric. Mucous membranes are moist. Oropharynx is clear. Neck: Supple without JVD. Chest: Expansion and excursion. Cardiovascular: Regular rate and rhythm. Pulmonary: Clear to auscultation bilaterally. Breasts: Focused examination of the breasts shows a right breast area of tenderness with fluctuance medial to the nipple-areolar complex approximately 3 o'clock position of the right breast. It has ov erlying previously well-healed scar. There is minimal redness to the area. There is no drainage fro m the nipple-areolar complex and cannot be expressed. The patient is currently in pain, as such she will not allow for an attempted expression of the abscess material or drainage from the nipple-areola r complex at this point. Abdomen: Soft, nontender, nondistended. Extremities: No clubbing, cyanosis, or edema. Skin: Warm and dry. Review of Systems: Ten-point review of systems other than HPI, denies. Laboratory Data: Her laboratory exam revealed a white blood cell count of 8.8, hemoglobin is ___, hematocrit is 44.6, platelet count is 294, neutrophils are 65%. PT 10.8, INR 0.98, PTT 31.0. S odium 138, potassium 3.8, chloride 109, carbon dioxide 23, BUN 15, creatinine 0.69, glucose is 193. Her hemoglobin A1c is 8.9, lactic acid 1.9, calcium 9.1, total bilirubin 0.5, AST 24, ALT 50, alkalin e phosphatase 58. She had a test, which was negative. She had a chest x-ray performed as well on 01/09, officially read as no acute abnormalities displayed. Assessment And Plan: This is a 37-year-old female, who comes with signs and symptoms of a right shakira st abscess at the 3 o'clock position. 1.IV fluids. 2.Antibiotic coverage. 3.I have explained risks, benefits, and alternatives of incision and drainage of breast abscess incl uding, but not limited to bleeding, infection, damage to surrounding tissues, need for further operat ion and procedures, nerve injury causing permanent numbness, breast duct damage leading to further in stances of fluid accumulation and possible need for future operations and surgery. Continue medical management per primary medical team. I have explained the risks, benefits, and alternatives as above . The patient agrees to proceed as indicated. Thank you for this interesting consult. SHU/OCTAVIA Voice ID: [id number] Report ID: [id number]
[2023-01-10] MEDS ORDERED: propofoL 200 MG/20 ML VIAL IV ONE (10:19)
[2023-01-10] MEDS ORDERED: FENTANYL CITR 100 MCG/2 ML ONE (10:19)
[2023-01-10] MEDS ORDERED: dexAMETHasone 10 MG/ML VIAL ONE (10:20)
[2023-01-10] MEDS ORDERED: MIDAZOLAM HCL 2 MG/2 ML INJ ONE (10:20)
[2023-01-10] MEDS ORDERED: ONDANSETRON 4 MG/2 ML VIAL ONE (10:20)
[2023-01-10] MEDS ORDERED: LIDOCAINE 2% MPF 5 ML VIAL ONE (10:21)
[2023-01-10] MEDS ORDERED: KETOROLAC 30 MG/ML INJ ONE (10:21)
--- NOTE | 2023-01-10 11:01 | P.OP ---
Preoperative diagnosis: RIGHT Breast Abscess Postoperative diagnosis: RIGHT Breast Abscess Primary procedure: Incision and Drainage of RIGHT Breast Abscess Anesthesia: GETA + Local Estimated blood loss: <5c Specimen: cultures x 4 Findings: abscess behind nipple aerolar complex - multiloculated Complications: None Transferred to: Recovery Room Condition: Good
--- NOTE | 2023-01-10 12:17 | EKG ---
Test Date: 2023-01-09 Test Time: 09:12:50 Marine Pilot: AP MEASUREMENT RESULTS: Intervals: Rate: 87 ND: 162 QRSD: 100 QT: 372 QTc: 447 Traer: P: 56 ND: 162 QRS: 20 T: 47 INTERPRETIVE STATEMENTS: Normal sinus rhythm Right atrial enlargement Borderline ECG No previous ECG available for comparison Electronically Signed On 01-10-23 12:13:52 CDT by Roberto Lyons
--- NOTE | 2023-01-10 12:17 | OP ---
Date of Procedure: 01/10/2023 Surgeon: Jayden Morton MD, Preoperative Diagnosis: Right breast abscess. Postoperative Diagnosis: Right breast abscess. Procedure Performed: Incision and drainage of right breast abscess. Anesthesia: General endotracheal plus local with 0.25% Marcaine. Estimated Blood Loss: Less than 5 cc. Specimen: Cultures x4. Findings: Abscess by the nipple-areolar complex multiloculated. Complications: None. Disposition: The patient was transferred to the recovery room in good condition. Procedure In Detail: After informed consent was obtained, the patient was brought to the operating r oom, prepped and draped in the usual sterile fashion after adequate anesthesia was achieved. I made a curvilinear incision around the nipple-areolar complex on the medial aspect at approximately the 2 to 5 o'clock position down the subcutaneous tissues with a 15 blade. I then dissected down using kiley ctrocautery to ultimately enter an abscess cavity, which was behind the nipple-areolar complex. Ther e was expressible pus from the nipple-areolar complex upon palpation through the nipple particularly. I then opened the cavity its entirety with hemostats and found to be multiloculated. After digital examination was performed, I broke up all loculations at this point. Ducts were likely disrupted to the nipple-areolar complex to this abscess. I then irrigated the area copiously after completely dr aining the abscess in all cavities associated. Hemostasis was achieved with electrocautery. The wou nd was then packed with Vashe-soaked 1 inch packing and a sterile dressing placed over top. The phylicia ent tolerated the procedure well without evidence of complication and transferred to PACU in good con dition. All counts were correct at the end of the case. TK/MODL Voice ID: [id number] Report ID: [id number]
[2023-01-10 15:45] VITALS: O2SAT 98
--- NOTE | 2023-01-10 15:57 | P.DS ---
Admission Date: 01/09/23 Discharge Date: 01/10/23 Disposition: ROUTINE DISCHARGE Discharge Condition: GOOD Reason for Admission: Right breast abscess - Problems (1) Abscess of right breast Current Visit: Yes Status: Acute (2) Morbid obesity Current Visit: Yes Status: Acute Brief History of Present Illness: Patient is a 37-year-old female with a past medical history significant for hypothyroidism, hypertension, DM 2, anxiety disorder, morbid obesity who presents with complaint of right breast pain\swelling and redness onset 3 days ago. Patient rated pain as 7/10 in severity and described pain as throbbing in quality. She indicated that pain radiates to her right arm. Patient reported associated signs and symptoms of fever, chills and fatigue. Breast ultrasound on presentation showed 3.3 cm abscess. Patient was hospitalized for further management. Hospital Course: Patient admitted to the medical floor and started on IV antibiotics. She was seen and evaluated by general surgery Dr. Morton who performed I&D in the OR. Patient noted to have multiloculated abscess. She currently denies any pain, no fever. She is deemed stable for discharge per Dr. Morton. Vital Signs/Physical Exam: Temp Pulse Resp BP Pulse Ox 96.8 F 76 16 115/57 L 96 01/10/23 12:00 01/10/23 12:00 01/10/23 12:00 01/10/23 12:00 01/10/23 12:00 General: Alert, In no apparent distress, Oriented x3, Obese HEENT: Mucous membr. moist/pink Neck: JVD not distended Respiratory: Clear to auscultation bilaterally, Normal air movement Cardiovascular: No edema, Regular rate/rhythm, Normal S1 S2 Gastrointestinal: Soft and benign, Non-distended Musculoskeletal: No erythema Neurological: Normal strength at 5/5 x4 extr Laboratory Data at Discharge: WBC 8.70 thou/uL (4.3-10.9) 01/10/23 03:10 Hgb 13.7 g/dL (12.0-15.0) D 01/10/23 03:10 Hct 40.3 % (36.0-45.0) 01/10/23 03:10 Plt Count 270 thou/uL (152-406) 01/10/23 03:10 PT 10.8 SECONDS (9.5-12.5) 01/09/23 09:18 INR 0.98 01/09/23 09:18 APTT 31.0 SECONDS (24.3-36.9) 01/09/23 09:18 Sodium 136 mEq/L (136-145) 01/10/23 03:10 Potassium 3.7 mEq/L (3.5-5.1) 01/10/23 03:10 BUN 15 mg/dL (7-18) 01/10/23 03:10 Creatinine 0.65 mg/dL (0.55-1.02) 01/10/23 03:10 Glucose 200 mg/dL (74-106) H 01/10/23 03:10 Phosphorus 3.3 mg/dL (2.5-4.9) 01/10/23 03:10 Magnesium 1.9 mg/dL (1.6-2.4) 01/09/23 13:23 Total Bilirubin 0.5 mg/dL (0.2-1.0) 01/09/23 09:18 AST 24 U/L (15-37) 01/09/23 09:18 ALT 50 U/L (13-56) 01/09/23 09:18 Alkaline Phosphatase 58 U/L (45-117) 01/09/23 09:18 Triglycerides 118 mg/dL (<150) 01/09/23 13:23 Cholesterol 156 mg/dL (<200) 01/09/23 13:23 HDL Cholesterol 36 mg/dL (40-60) L 01/09/23 13:23 Cholesterol/HDL Ratio 4.33 01/09/23 13:23 Diet: Regular Activity: Ad isabela Followup: Edison Salas MD [Primary Care Provider] - Jayden Morton MD [ACTIVE - CAN ADMIT] -
[2023-01-10 16:52] VITALS: BP 143/88; TEMP 96.9
== END 2023-01-10 16:45 | disposition home or self-care (01) ==
LOC: ER 08:35 → ERHOLD 12:55 → 4TH 16:40
PROVIDERS: ADMIT Internal Medicine; ATTEND Internal Medicine
PROC: 0J960ZZ Drainage of Chest Subcutaneous Tissue and Fascia, Open Approach (ICD-10-PCS; principal; 2023-01-10 09:45)
DX: N61.1 Abscess of the breast and nipple (principal); N64.4 Mastodynia; E03.9 Hypothyroidism, unspecified; I10 Essential (primary) hypertension; E11.9 Type 2 diabetes mellitus without complications; F41.9 Anxiety disorder, unspecified; E66.01 Morbid (severe) obesity due to excess calories; Z68.43 Body mass index [BMI] 50.0-59.9, adult
CPT/HCPCS: 93005; 87040 ×2; 87070 ×2; 85025 ×2; 81001; 80048; 36415 ×2; 83735; 87205 ×4; 81025; 84100 ×2; 85610; 80061; 82947 ×5; 83605; 85730; 87075 ×2; 83036; 80053; 71045; 76642; 99284; 10060; J1815 ×3; J3480; J2704; J2001; J2250; J3010; J1100; J1170 ×2; J2405 ×2; J7040 ×2; J7030; J0692 ×3; G0378

== ENCOUNTER 2024-04-21 21:34 | Emergency (ER) | payer BC ==
[2024-04-21] MEDS ORDERED: SMZ./TMP. 800/160 MG TABLET ONE (23:22)
[2024-04-21] MEDS ORDERED: CEPHALEXIN 250 MG CAP ONE (23:22)
[2024-04-21] MEDS ORDERED: HYDROCODONE/APAP 10/325 TAB ONE (23:23)
[2024-04-21] MEDS ORDERED: IBUPROFEN 400 MG TAB ONE (23:23)
[2024-04-21] MEDS ORDERED: ONDANSETRON 4 MG (ODT) TAB ONE ×2 (23:23→23:35)
[2024-04-22] MEDS ORDERED: LIDOCAINE 1% MPF 30 ML VIAL ONE (00:35)
--- NOTE | 2024-04-22 02:56 | EDPHYS ---
Physician Documentation [facility] Name: Champ Wills Age: 38 yrs Sex: Female : 1985 Arrival Date: 04/21/2024 Time: 21:34 Bed 3 Private MD: ED Physician Monty Lam HPI: 04/21 21:38 This 38 yrs old Female presents to ER via Unassigned with complaints of sp4 Abscess - inner thigh. 04/22 21:17 38-year-old female presents with left inner thigh abscess secondary to hidradenitis sp4 suppurativa. States she has multiple abscesses in the same area in her prior history. This time abscess is too big for her to deal at home. Abscess located to left upper inner thigh close to the groin. 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 - Infectious Disease History:: Denies. - Social history:: Smoking status: Patient denies any tobacco usage or history of. - Family history:: not pertinent. ROS: 04/22 21:17 Constitutional: Negative for fever, chills, and weight loss, positive for left inner sp4 thigh abscess All other systems are negative, Exam: 21:17 Constitutional: This is a well developed, well nourished patient who is awake, alert, sp4 and in no acute distress. Overweight female no acute distress Head/Face: Normocephalic, atraumatic. Eyes: Pupils equal round and reactive to light, extra-ocular motions intact. Lids and lashes normal. Conjunctiva and sclera are not injected. Cornea within normal limits. Periorbital areas with no swelling, redness, or edema. ENT: Nares patent. No nasal discharge, no septal abnormalities noted. Tympanic membranes are normal and external auditory canals are clear. Oropharynx with no redness, swelling, or masses, exudates, or evidence of obstruction, uvula midline. Mucous membranes moist. Neck: Trachea midline, no thyromegaly or masses palpated, and no cervical lymphadenopathy. Supple, full range of motion without nuchal rigidity, or vertebral point tenderness. Chest/axilla: Normal chest wall appearance and motion. Nontender with no deformity. No lesions are appreciated. Cardiovascular: Regular rate and rhythm with a normal S1 and S2. No gallops, murmurs, or rubs. Normal PMI, no JVD. No pulse deficits. Respiratory: Lungs have equal breath sounds bilaterally, clear to auscultation and percussion. No rales, rhonchi or wheezes noted. No increased work of breathing, no retractions or nasal flaring. Abdomen/GI: Soft, with normal bowel sounds. No distension or tympany. No guarding or rebound. No evidence of tenderness throughout. Back: No spinal tenderness. No costovertebral tenderness. Female : Normal external genitalia. Skin: Warm, dry with normal turgor. Normal color , left inner thigh demonstrates significant size abscess upper left inner thigh close to the groin, multiple acne and blackheads consistent with hidradenitis suppurativa MS/ Extremity: Pulses equal, no cyanosis. Neurovascular intact. Full, normal range of motion. Vital Signs: 04/21 22:01 BP 149 / 93; Pulse 102; Resp 18; Temp 98.6(O); Pulse Ox 98% on R/A; Weight 154.22 kg; tl4 Height 5 ft. 7 in. ; Pain 8/10; 04/22 00:30 BP 136 / 96; Pulse 87; Resp 18; Temp 98.6; Pulse Ox 98% ; Pain 9/10; bm8 02:07 BP 116 / 78; Pulse 78; Resp 16; Temp 98.6; Pulse Ox 94% on R/A; Pain 9/10; bm8 03:09 BP 114 / 73; Pulse 81; Resp 17; Temp 98.4; Pulse Ox 100% ; Pain 3/10; bm8 04/21 22:01 Body Mass Index 53.25 (154.22 kg, 170.18 cm) 4 04/21 22:01 Pain Scale: Adult tl4 04/22 00:30 Pain Scale: Adult bm8 02:07 Pain Scale: Adult bm8 03:09 Pain Scale: Adult bm8 Hiko Coma Score: 00:30 Eye Response: spontaneous(4). Motor Response: obeys commands(6). Verbal Response: bm8 oriented(5). Total: 15. 02:07 Eye Response: spontaneous(4). Motor Response: obeys commands(6). Verbal Response: bm8 oriented(5). Total: 15. 03:09 Eye Response: spontaneous(4). Motor Response: obeys commands(6). Verbal Response: bm8 oriented(5). Total: 15. 21:17 Eye Response: spontaneous(4). Motor Response: obeys commands(6). Verbal Response: sp4 oriented(5). Total: 15. Procedures: 21:17 I \T\ D: Incision and drainage was performed for an abscess of the left left inner thigh sp4 --left upper inner thigh close to the groin Prepped with Betadine, Anesthetized with 40 ml's 1% Lidocaine. Incised with #11 blade. Drained moderate amount purulent fluid. bloody fluid. Packed with sterile gauze, Dressing: sterile 4x4 gauze, the patient tolerated the procedure well, he patient to extract packing gauze after 48 hours.. MDM: 04/21 21:41 Patient medically screened. sp4 04/22 02:54 Differential diagnosis: abscess, allergic reaction, cellulitis, insect bite. Data sp4 reviewed: vital signs, nurses notes, old medical records. ED course: stable for discharge home . 21:17 Consideration of Admission/Observation Escalation of care including sp4 admission/observation considered. ED course: Stable for discharge home with p.o. Bactrim twice a day for 10 days.. 04/21 22:09 Order name: Dressing - Wound; Complete Time: 02:54 sp4 04/21 22:09 Order name: Gloves, Sterile; Complete Time: 02:54 sp4 04/21 22:09 Order name: Setup Suture Tray; Complete Time: 02:54 sp4 Administered Medications: 04/21 23:29 Drug: [place] PO 10 mg-325 mg 1 tabs PO once Route: PO; 4 04/22 00:34 Follow up: Response: No adverse reaction; Marked relief of symptoms [facility] 04/21 23:29 Drug: Ibuprofen PO 800 mg PO once Route: PO; tl4 04/22 00:34 Follow up: Response: No adverse reaction; Marked relief of symptoms 7 04/21 23:29 Drug: Ondansetron PO 4 mg PO once Route: PO; tl4 04/22 00:34 Follow up: Response: No adverse reaction; Marked relief of symptoms 7 04/21 23:29 Drug: Trimethoprim-Sulfamethoxazole PO (160 mg-800 mg (DS) 1 tablet PO once Route: PO; tl4 04/22 00:34 Follow up: Response: No adverse reaction jw7 04/21 23:29 Drug: Cephalexin PO 500 mg PO once Route: PO; tl4 04/22 00:34 Follow up: Response: No adverse reaction jw7 02:54 Drug: Lidocaine Infiltration (1 %) 40 ml 20 ml Infiltration once; to bedside Volume: 20 jw7 ml; Route: Infiltration; 03:08 Follow up: Response: No adverse reaction bm8 03:05 Drug: [place] PO 10 mg-325 mg 1 tabs PO once Route: PO; bm8 03:12 Follow up: Response: Medication administered at discharge. bm8 Disposition Summary: 04/22/24 02:55 Discharge Ordered Notes: Location: Home sp4 Problem: new sp4 Symptoms: have improved sp4 Condition: Stable sp4 Diagnosis - Cutaneous abscess of left lower limb sp4 - Acute cutaneous abscess left upper thigh sp4 Followup: sp4 - With: Private Physician - When: 7 - 10 days - Reason: Recheck today's complaints Discharge Instructions: - Discharge Summary Sheet sp4 - Skin Abscess, [id number] sp4 Forms: - Patient Portal Instructions sp4 Prescriptions: - Tramadol 50 mg Oral Tablet - take 1 tablet ORAL route every 8 hours as needed; 12 tablet; Refills: 0, sp4 Product Selection Permitted - Bactrim DS 800-160 mg Oral Tablet - take 1 tablet ORAL route every 12 hours for 10 days; 20 tablet; Refills: 0, sp4 Product Selection Permitted Signatures: Evelyn Tian RN RN jw7 Monty Lam MD MD sp4 Del Bronson RN RN tl4 Kirk Stevenson RN RN bm8
--- NOTE | 2024-04-22 02:56 | ER ---
Nurse's Notes [facility] Name: Champ Wills Age: 38 yrs Sex: Female : 1985 Arrival Date: 04/21/2024 Time: 21:34 Bed 3 Private MD: Diagnosis: Cutaneous abscess of left lower limb;Acute cutaneous abscess left upper thigh Presentation: 04/21 22:01 Chief complaint: Patient states: Pt c/o abscess to left upper inner thigh since tl4 Saturday. Pt states area is getting worse. Pt has history of HS. Coronavirus screen: At this time, the client does not indicate any symptoms associated with coronavirus-19. Ebola Screen: No symptoms or risks identified at this time. Initial Sepsis Screen: Does the patient meet any 2 criteria? No. Patient's initial sepsis screen is negative. Does the patient have a suspected source of infection? No. Patient's initial sepsis screen is negative. Risk Assessment: Do you want to hurt yourself or someone else? Patient reports no desire to harm self or others. Onset of symptoms was April 18, 2024. 22:01 Method Of Arrival: Ambulatory tl4 22:01 Acuity: LANCE 3 tl4 Triage Assessment: 22:05 General: Appears in no apparent distress. Behavior is cooperative. Pain: Complains of tl4 pain in left leg. EENT: No signs and/or symptoms were reported regarding the EENT system. Neuro: Level of Consciousness is awake, alert, obeys commands, Oriented to person, place, time, situation. Cardiovascular: Capillary refill < 3 seconds Patient's skin is warm and dry. Respiratory: Airway is patent Respiratory effort is even, unlabored, Respiratory pattern is regular, symmetrical, Breath sounds are clear bilaterally. GI: No signs and/or symptoms were reported involving the gastrointestinal system. : No signs and/or symptoms were reported regarding the genitourinary system. Derm: Abscess located on left leg. Musculoskeletal: No signs and/or symptoms reported regarding the musculoskeletal system. 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 - Infectious Disease History:: Denies. - Social history:: Smoking status: Patient denies any tobacco usage or history of. - Family history:: not pertinent. Screenin/03 00:30 [facility] ED Fall Risk Assessment (Adult) History of falling in the last 3 months, bm8 including since admission No falls in past 3 months (0 pts) Confusion or Disorientation No (0 pts) Intoxicated or Sedated No (0 pts) Impaired Gait No (0 pts) Mobility Assist Device Used No (0 pt) Altered Elimination No (0 pt) Score/Fall Risk Level 0 - 2 = Low Risk Oriented to surroundings, Maintained a safe environment, Educated pt \T\ family on fall prevention, incl call for assistance when getting out of bed, Assessed \T\ reinforced patient's understanding of fall precautions, Hourly rounding (assess needs \T\ fall precautionary measures) done, Used ambulatory aids as needed (educated on \T\ assisted with). Abuse screen: Denies threats or abuse. Nutritional screening: No deficits noted. Tuberculosis screening: No symptoms or risk factors identified. Assessment: 00:30 Reassessment: Patient appears in no apparent distress at this time. Patient and/or bm8 family updated on plan of care and expected duration. Pain level reassessed. Patient is alert, oriented x 3, equal unlabored respirations, skin warm/dry/pink. Pain: Complains of pain in left leg Pain does not radiate. Pain currently is 9 out of 10 on a pain scale. Quality of pain is described as aching. Neuro: No deficits noted. Level of Consciousness is awake, alert, obeys commands, Oriented to person, place, time, situation, Appropriate for age. Cardiovascular: Denies chest pain, diaphoresis, Capillary refill < 3 seconds Patient's skin is warm and dry. Respiratory: No deficits noted. Airway is patent Respiratory effort is even, unlabored, Respiratory pattern is regular, symmetrical. GI: No signs and/or symptoms were reported involving the gastrointestinal system. : No signs and/or symptoms were reported regarding the genitourinary system. EENT: No signs and/or symptoms were reported regarding the EENT system. Derm: Abscess located on left inner thigh Reports increased pain. Musculoskeletal: No signs and/or symptoms reported regarding the musculoskeletal system. 02:07 Reassessment: Patient appears in no apparent distress at this time. No changes from bm8 previously documented assessment. Patient and/or family updated on plan of care and expected duration. Pain level reassessed. Patient is alert, oriented x 3, equal unlabored respirations, skin warm/dry/pink. awaiting to provider for I and D procedure. 03:09 Reassessment: Patient and/or family updated on plan of care and expected duration. Pain bm8 level reassessed. Patient is alert, oriented x 3, equal unlabored respirations, skin warm/dry/pink. Patient states feeling better. Patient states symptoms have improved. Vital Signs: 04/21 22:01 BP 149 / 93; Pulse 102; Resp 18; Temp 98.6(O); Pulse Ox 98% on R/A; Weight 154.22 kg; tl4 Height 5 ft. 7 in. ; Pain 8/10; 04/22 00:30 BP 136 / 96; Pulse 87; Resp 18; Temp 98.6; Pulse Ox 98% ; Pain 9/10; bm8 02:07 BP 116 / 78; Pulse 78; Resp 16; Temp 98.6; Pulse Ox 94% on R/A; Pain 9/10; bm8 03:09 BP 114 / 73; Pulse 81; Resp 17; Temp 98.4; Pulse Ox 100% ; Pain 3/10; bm8 04/21 22:01 Body Mass Index 53.25 (154.22 kg, 170.18 cm) [facility] 04/21 22:01 Pain Scale: Adult tl4 04/22 00:30 Pain Scale: Adult bm8 02:07 Pain Scale: Adult bm8 03:09 Pain Scale: Adult bm8 Renetta Coma Score: 00:30 Eye Response: spontaneous(4). Motor Response: obeys commands(6). Verbal Response: bm8 oriented(5). Total: 15. 02:07 Eye Response: spontaneous(4). Motor Response: obeys commands(6). Verbal Response: bm8 oriented(5). Total: 15. 03:09 Eye Response: spontaneous(4). Motor Response: obeys commands(6). Verbal Response: bm8 oriented(5). Total: 15. 21:17 Eye Response: spontaneous(4). Motor Response: obeys commands(6). Verbal Response: sp4 oriented(5). Total: 15. ED Course: 04/21 21:38 Patient arrived in ED. ra3 21:38 Monty Lam MD is Attending Physician. sp4 22:03 Triage completed. tl4 22:07 Arm band placed on right wrist. tl4 04/22 00:30 Kirk Stevenson, RN is Primary Nurse. bm8 00:30 Patient has correct armband on for positive identification. Bed in low position. Call bm8 light in reach. Side rails up X 1. Client placed on continuous cardiac and pulse oximetry monitoring. NIBP monitoring applied. Pulse ox on. NIBP on. Door closed. Noise minimized. Visitors limited. Head of bed elevated. 02:40 Assist provider with I \T\ D: of an abscess on left Inside thigh Set up I\T\D tray. jw 7 Performed by Monty Lam MD Wound packed. iodoform gauze, Dressing with 4X4s, tape Patient tolerated well. 03:09 Provided Education on: post er care. bm8 03:09 Patient did not have IV access during this emergency room visit. bm8 Administered Medications: 04/21 23:29 Drug: [place] PO 10 mg-325 mg 1 tabs PO once Route: PO; tl4 04/22 00:34 Follow up: Response: No adverse reaction; Marked relief of symptoms jw7 04/21 23:29 Drug: Ibuprofen PO 800 mg PO once Route: PO; tl4 04/22 00:34 Follow up: Response: No adverse reaction; Marked relief of symptoms jw7 04/21 23:29 Drug: Ondansetron PO 4 mg PO once Route: PO; tl4 04/22 00:34 Follow up: Response: No adverse reaction; Marked relief of symptoms jw7 04/21 23:29 Drug: Trimethoprim-Sulfamethoxazole PO (160 mg-800 mg (DS) 1 tablet PO once Route: PO; tl4 04/22 00:34 Follow up: Response: No adverse reaction jw7 04/21 23:29 Drug: Cephalexin PO 500 mg PO once Route: PO; tl4 04/22 00:34 Follow up: Response: No adverse reaction jw7 02:54 Drug: Lidocaine Infiltration (1 %) 40 ml 20 ml Infiltration once; to bedside Volume: 20 jw7 ml; Route: Infiltration; 03:08 Follow up: Response: No adverse reaction bm8 03:05 Drug: [place] PO 10 mg-325 mg 1 tabs PO once Route: PO; bm8 03:12 Follow up: Response: Medication administered at discharge. bm8 Medication: 00:30 VIS not applicable for this client. bm8 Outcome: 02:55 Discharge ordered by . sp4 03:09 Discharged to home ambulatory, bm8 03:09 Condition: stable 03:09 Discharge instructions given to patient, Instructed on discharge instructions, follow up and referral plans. no drinking with medication, no driving heavy equipment, medication usage, safety practices, Demonstrated understanding of instructions, follow-up care, medications, Prescriptions given X 2, 03:11 Patient left the ED. bm8 Signatures: Evelyn Tian, RN RN jw7 Monty Lam MD MD sp4 Del Bronson RN RN tl4 [place] ra3 Kirk Stevenson RN RN bm8
[2024-04-22] MEDS ORDERED: HYDROCODONE/APAP 10/325 TAB ONE (03:08)
[2024-04-22 03:23] VITALS: BP 114/73; TEMP 98.4; O2SAT 100
== END 2024-04-22 03:11 | disposition home or self-care (01) ==
LOC: ER 21:34
PROC: 0H9JXZZ Drainage of Left Upper Leg Skin, External Approach (ICD-10-PCS; principal; 2024-04-22)
DX: L02.416 Cutaneous abscess of left lower limb (principal)
CPT/HCPCS: 99284; 10060; Q0162; J2001

== ENCOUNTER 2024-10-02 04:17 | Inpatient (IN) | payer BC ==
[2024-10-02] MEDS ORDERED: VANCOMYCIN 1 GM/VIAL ONE (05:10)
[2024-10-02] MEDS ORDERED: KETOROLAC 30 MG/ML INJ ONE ×2 (05:11→13:38)
[2024-10-02] MEDS ORDERED: ONDANSETRON 4 MG/2 ML VIAL ONE ×2 (05:11→13:38)
[2024-10-02] MEDS ORDERED: MORPHINE 4 MG/ML SYR ONE (05:11)
[2024-10-02] MEDS ORDERED: NA CHLORIDE 0.9% 500 ML ONE (05:12)
[2024-10-02] MEDS ORDERED: NA CHLORIDE 0.9% 100 ML ONE (05:12)
[2024-10-02] MEDS ORDERED: PIPERACIL/TAZO 3.375 GM VIAL IV ONE (05:12)
[2024-10-02] MEDS ORDERED: NA CHLORIDE 0.9% 1,000 ML ONE (05:12)
[2024-10-02 05:24] LABS: Absolute Basophils 0.1 K/uL (0-0.5); Absolute Eosinophils 0.1 K/uL (0-0.5); Absolute Lymphocytes (CBC) 2.6 K/uL (0.7-4.9); Absolute Monocytes 0.8 K/uL (0.1-1.3); Absolute Neutrophil 7.4 K/uL (1.8-8.0); Basophils % 1.2 % (0-1.3); Hematocrit 46.8 % (36.0-45.0); Hemoglobin 15.4 g/dL (12.0-15.0); Lymphocytes % 23.6 % (15.3-44.8); MCH 30.8 pg (27.0-35.0); MCHC 32.9 g/dL (32.0-36.0); MCV 93.7 fL (80-100); MPV 8.5 fL (7.6-11.3); Monocytes % 7.3 % (3.3-12.3); Neutrophils % 66.9 % (41.7-73.7); Nucleated Red Blood Cells % 0.3 % (0-0); Platelets 302 thou/uL (152-406); RBC Red Blood Cell Count 4.99 M/uL (3.86-4.86); Red Cell Distribution Width 13.3 % (12.1-15.2)
[2024-10-02 05:48] LABS: Albumin 3.2 g/dL (3.4-5.0); Albumin/Globulin Ratio 0.8 (1.1-1.8); Anion Gap 10.7 mEq/L (5.0-15.0); Bilirubin Total 0.6 mg/dL (0.2-1.0); Globulin 4.2 g/dL (2.3-3.5); Protein, Total 7.4 g/dL (6.4-8.2)
[2024-10-02 05:50] LABS: Potassium 3.7 mEq/L (3.5-5.1)
--- NOTE | 2024-10-02 07:02 | EDPHYS ---
Physician Documentation [facility] Name: Champ Wills Age: 38 yrs Sex: Female : 1985 Arrival Date: 10/02/2024 Time: 04:17 Bed 13 Private MD: ED Physician Monty Lam HPI: 10/02 04:32 This 38 yrs old Other Race Female presents to ER via Unassigned with complaints of sp4 Abscess, BREAST ABSCESS. 07:01 38-year-old female presents with recurrent left breast abscess reported to be sp4 underneath left areola. There is pain redness swelling and discomfort.. 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 - Infectious Disease History:: Denies. - Social history:: Smoking status: Patient denies any tobacco usage or history of. - Family history:: not pertinent. ROS: 07:01 Constitutional: Negative for fever, chills, and weight loss, positive for left breast sp4 pain swelling or redness 07:01 All other systems are negative, Exam: 07:01 Constitutional: This is a well developed, well nourished patient who is awake, alert, sp4 and in no acute distress. Head/Face: Normocephalic, atraumatic. Eyes: Pupils equal round and reactive to light, extra-ocular motions intact. Lids and lashes normal. Conjunctiva and sclera are not injected. Cornea within normal limits. Periorbital areas with no swelling, redness, or edema. ENT: Nares patent. No nasal discharge, no septal abnormalities noted. Tympanic membranes are normal and external auditory canals are clear. Oropharynx with no redness, swelling, or masses, exudates, or evidence of obstruction, uvula midline. Mucous membranes moist. Neck: Trachea midline, no thyromegaly or masses palpated, and no cervical lymphadenopathy. Supple, full range of motion without nuchal rigidity, or vertebral point tenderness. Chest/axilla: Normal chest wall appearance and motion. Nontender with no deformity. No lesions are appreciated. Cardiovascular: Regular rate and rhythm with a normal S1 and S2. No gallops, murmurs, or rubs. Normal PMI, no JVD. No pulse deficits. Respiratory: Lungs have equal breath sounds bilaterally, clear to auscultation and percussion. No rales, rhonchi or wheezes noted. No increased work of breathing, no retractions or nasal flaring. Abdomen/GI: Soft, with normal bowel sounds. No distension or tympany. No guarding or rebound. No evidence of tenderness throughout. Back: No spinal tenderness. No costovertebral tenderness. Skin: Warm, dry with normal turgor. Normal color with no rashes, no lesions, and no evidence of cellulitis. MS/ Extremity: Pulses equal, no cyanosis. Neurovascular intact. Full, normal range of motion. Neuro: Awake and alert, GCS 15, oriented to person, place, time, and situation. Cranial nerves II-XII grossly intact. Motor strength 5/5 in all extremities. Sensory grossly intact. Psych: Awake, alert, with orientation to person, place and time. Behavior, mood, and affect are within normal limits Vital Signs: 04:44 BP 132 / 74; Pulse 100; Resp 15; Temp 98.5; Pulse Ox 95% ; Weight 140.61 kg; Height 5 vc1 ft. 7 in. ; Pain 8/10; 05:31 BP 113 / 67; Pulse 95; Resp 18; Pulse Ox 95% on R/A; Pain 8/10; rg5 08:18 BP 112 / 78; Pulse 81; Resp 17 S; Pulse Ox 93% on R/A; kc6 04:44 Body Mass Index 48.55 (140.61 kg, 170.18 cm) vc1 04:44 Pain Scale: Adult vc1 05:31 Pain Scale: Adult rg5 [place]reve Coma Score: 05:00 Eye Response: spontaneous(4). Motor Response: obeys commands(6). Verbal Response: rg5 oriented(5). Total: 15. 07:01 Eye Response: spontaneous(4). Motor Response: obeys commands(6). Verbal Response: sp4 oriented(5). Total: 15. MDM: 04:42 Medical Screening Exam initiated sp4 07:03 Differential diagnosis: abscess, allergic reaction, cellulitis, insect bite. Data sp4 reviewed: vital signs, nurses notes, old medical records, lab test result(s). Consideration of Admission/Observation Patient was admitted/placed on observation. Escalation of care including admission/observation considered. Management of patient was discussed with the following: Hospitalist: Wally MORRIS. Residential Housekeeper: Storm PICKARD . ED course: Patient was discussed with general surgeon and admitted to hospitalist for I\T\D of a left breast abscess.. 10/02 04:41 Order name: CBC with Diff; Complete Time: 06:59 sp4 10/02 04:41 Order name: CMP; Complete Time: 06:59 sp4 10/02 04:42 Order name: Test, Serum; Complete Time: 06:59 sp4 10/02 07:52 Order name: PTH Intact EDMS 10/02 07:52 Order name: Thyroid Stimulating Hormone EDMS 10/02 07:52 Order name: CBC with Automated Diff EDMS 10/02 07:52 Order name: CBC with Automated Diff EDMS / 07:52 Order name: CBC with Automated Diff EDMS / 07:52 Order name: CBC with Automated Diff EDMS / 07:52 Order name: Comprehensive Metabolic Panel EDMS / 07:52 Order name: Comprehensive Metabolic Panel EDMS / 07:52 Order name: Comprehensive Metabolic Panel EDMS / 07:52 Order name: Comprehensive Metabolic Panel EDMS / 07:52 Order name: Lipid Profile EDMS / 07:52 Order name: Lipid Profile EDMS /13 07:52 Order name: Magnesium EDMS 12/13 07:52 Order name: Magnesium EDMS 12/ 07:52 Order name: Magnesium EDMS /13 07:52 Order name: Magnesium EDMS 12/13 07:52 Order name: Phosphorus EDMS / 07:52 Order name: Phosphorus EDMS /13 07:52 Order name: Phosphorus EDMS 12/13 07:52 Order name: Phosphorus EDMS 12/13 07:52 Order name: CONS Physician Consult EDAZ 10/02 04:41 Order name: IV Saline Lock; Complete Time: 05:29 sp4 10/02 04:41 Order name: Labs collected and sent; Complete Time: 05:29 sp4 10/02 06:59 Order name: NPO; Complete Time: 07:03 sp4 Administered Medications: 05:00 Drug: Ondansetron IVP 8 mg IVP once; over 2 minutes Route: IVP; Site: right hand; rg5 06:40 Follow up: Response: No adverse reaction br2 05:00 Drug: NS 0.9% IV 1000 ml IV at 1 bolus Per protocol; to be given as a bolus over 60 rg5 minutes Route: IV; Rate: 1 bolus; Site: right hand; 06:40 Follow up: Response: No adverse reaction; IV Status: Infusion continued; IV Intake: br2 1000ml 05:09 Drug: TORadol - Ketorolac IVP 15 mg IVP once Route: IVP; Site: right hand; rg5 06:40 Follow up: Response: No adverse reaction br2 05:10 Drug: morphine IVP or IV 8 mg IVP once over 4 mins Route: IVP; Infused Over: 4 mins; rg5 Site: right hand; 06:40 Follow up: Response: No adverse reaction br2 05:20 Drug: Piperacillin-Tazobactam IVPB 3.375 grams IVPB once over 60 mins; (mix in NS 100 rg5 mL) Route: IVPB; Infused Over: 60 mins; Site: right hand; 06:51 Follow up: Response: No adverse reaction; IV Intake: 100ml br2 06:52 Drug: vancoMYCIN IVPB 2 grams IVPB at calculated rate once Route: IVPB; Rate: br2 calculated rate; Site: right hand; 08:19 Follow up: Response: No adverse reaction; IV Status: Completed infusion; IV Intake: kc6 250ml Disposition Summary: 10/02/24 07:01 Hospitalization Ordered Notes: Hospitalization Status: Observation sp4 Provider: Vlad Stokes Location: Telemetry/MedSur (observation) sp4 Condition: Stable sp4 Problem: new sp4 Symptoms: have improved sp4 Bed/Room Type: Standard sp4 Room Assignment: 223(10/02/24 08:29) eb Diagnosis - Left Breast Abscess sp4 Forms: - Medication Reconciliation Form sp4 - SBAR form sp4 - Leadership Thank You Letter sp4 Signatures: Dispatcher [employer] EDAZ Sharon Moya Vanessa RN RN vc1 Monty Lam MD MD sp4 Donato Delgado RN RN rg5 Kia Bass RN RN br2 Divine Mas RN kc6 Corrections: (The following items were deleted from the chart) 04:42 04:42 TEST, SERUM+SC.LAB.BRZ ordered. EDAZ EDMS 08:29 07:01 sp4 eb
--- NOTE | 2024-10-02 07:02 | ER ---
Nurse's Notes [facility] Name: Champ Wills Age: 38 yrs Sex: Female : 1985 Arrival Date: 10/02/2024 Time: 04:17 Bed 13 Private MD: Diagnosis: Left Breast Abscess Presentation: 10/02 04:44 Chief complaint: Chief complaint: Patient states: abscess on left breast beside left vc1 nipple. Coronavirus screen: Client denies travel out of the [place] in the last 14 days. At this time, the client does not indicate any symptoms associated with coronavirus-19. Ebola Screen: Patient negative for fever greater than or equal to 101.5 degrees Fahrenheit, and additional compatible Ebola Virus Disease symptoms Patient denies exposure to infectious person. Patient denies travel to an Ebola-affected area in the 21 days before illness onset. No symptoms or risks identified at this time. Initial Sepsis Screen: Does the patient meet any 2 criteria? No. Patient's initial sepsis screen is negative. Does the patient have a suspected source of infection? No. Patient's initial sepsis screen is negative. Risk Assessment: Do you want to hurt yourself or someone else? Patient reports no desire to harm self or others. Onset of symptoms is unknown. 04:44 Method Of Arrival: Ambulatory vc1 04:44 Acuity: LANCE 3 vc1 Triage Assessment: 04:54 General: Appears in no apparent distress. uncomfortable, obese, well groomed, well vc1 developed, well nourished, Behavior is calm, cooperative, appropriate for age. Pain: Complains of pain in left nipple Pain does not radiate. Pain currently is 8 out of 10 on a pain scale. Quality of pain is described as sharp, Pain began 2-3 days ago. EENT: No deficits noted. No signs and/or symptoms were reported regarding the EENT system. Neuro: Level of Consciousness is awake, alert, obeys commands, Oriented to person, place, time, situation, Appropriate for age. Cardiovascular: Capillary refill < 3 seconds Patient's skin is warm and dry. Respiratory: Airway is patent Respiratory effort is even, unlabored, Respiratory pattern is regular, symmetrical. GI: Abdomen is round non-distended. : No deficits noted. No signs and/or symptoms were reported regarding the genitourinary system. Derm: Wound noted left nipple. Musculoskeletal: Circulation, motion, and sensation intact. Range of motion: intact in all extremities. SHELLACKER: 04:53 LMP N/A - control method, Not rg5 Historical: - Allergies: 04:50 No Known Allergies; vc1 - Home Meds: 04:50 Abilify Oral [Active]; atorvastatin oral [Active]; levothyroxine oral [Active]; vc1 metformin 500 mg Oral Tb24 1 tab once daily [Active]; valsartan [Active]; - PMHx: 04:50 Anxiety; Diabetes - NIDDM; Hidradenitis Suppurativa (Hypothyroidism); Hypertension; vc1 Hypothyroidism; - PSHx: 04:50 breast surgery; Breast sx; section; vc1 - Immunization history:: Client reports receiving the 2nd dose of the Covid vaccine. - Infectious Disease History:: Denies. - Social history:: Smoking status: Patient denies any tobacco usage or history of. - Family history:: not pertinent. Screenin:52 [facility] ED Fall Risk Assessment (Adult) History of falling in the last 3 months, vc1 including since admission No falls in past 3 months (0 pts) Confusion or Disorientation No (0 pts) Intoxicated or Sedated No (0 pts) Impaired Gait No (0 pts) Mobility Assist Device Used No (0 pt) Altered Elimination No (0 pt) Score/Fall Risk Level 0 - 2 = Low Risk Oriented to surroundings, Maintained a safe environment, Educated pt \T\ family on fall prevention, incl call for assistance when getting out of bed. Abuse screen: Denies threats or abuse. Nutritional screening: No deficits noted. Tuberculosis screening: No symptoms or risk factors identified. Assessment: 05:00 General: Appears in no apparent distress. Behavior is crying. rg5 05:00 Pain: Complains of pain in left nipple and left breast Quality of pain is described as rg5 aching, Pain began 4 hours ago. Neuro: Level of Consciousness is awake, alert, obeys commands, Oriented to person, place, time. Cardiovascular: Patient's skin is warm and dry. Respiratory: Airway is patent Trachea midline Respiratory effort is even, unlabored, Respiratory pattern is regular, symmetrical. GI: Abdomen is round obese. : No signs and/or symptoms were reported regarding the genitourinary system. EENT: No deficits noted. Derm: Skin is intact, Skin is dry, Skin is normal, Skin temperature is warm. Musculoskeletal: Circulation, motion, and sensation intact. Range of motion: intact in all extremities. 07:15 General: Appears in no apparent distress. comfortable, obese, well groomed, well kc6 developed, Behavior is calm, cooperative, appropriate for age. Pain: Complains of pain in left breast. Neuro: Level of Consciousness is awake, alert, obeys commands, Oriented to person, place, time, situation, Appropriate for age. Cardiovascular: Capillary refill < 3 seconds. Respiratory: Airway is patent Trachea midline Respiratory effort is even, unlabored, Respiratory pattern is regular, symmetrical. GI: No signs and/or symptoms were reported involving the gastrointestinal system. : No signs and/or symptoms were reported regarding the genitourinary system. EENT: No signs and/or symptoms were reported regarding the EENT system. Derm: Skin is intact, is healthy with good turgor, Skin is pink, warm \T\ dry. Abscess located on left breast. Musculoskeletal: No signs and/or symptoms reported regarding the musculoskeletal system. Circulation, motion, and sensation intact. Capillary refill < 3 seconds, Range of motion: intact in all extremities. 08:18 Reassessment: Patient appears in no apparent distress at this time. No changes from kc6 previously documented assessment. Patient and/or family updated on plan of care and expected duration. Pain level reassessed. Patient is alert, oriented x 3, equal unlabored respirations, skin warm/dry/pink. Vital Signs: 04:44 BP 132 / 74; Pulse 100; Resp 15; Temp 98.5; Pulse Ox 95% ; Weight 140.61 kg; Height 5 vc1 ft. 7 in. ; Pain 8/10; 05:31 BP 113 / 67; Pulse 95; Resp 18; Pulse Ox 95% on R/A; Pain 8/10; rg5 08:18 BP 112 / 78; Pulse 81; Resp 17 S; Pulse Ox 93% on R/A; kc6 04:44 Body Mass Index 48.55 (140.61 kg, 170.18 cm) vc1 04:44 Pain Scale: Adult vc1 05:31 Pain Scale: Adult rg5 [place] Coma Score: 05:00 Eye Response: spontaneous(4). Motor Response: obeys commands(6). Verbal Response: rg5 oriented(5). Total: 15. 07:01 Eye Response: spontaneous(4). Motor Response: obeys commands(6). Verbal Response: sp4 oriented(5). Total: 15. ED Course: 04:20 Patient arrived in ED. jj6 04:32 Monty Lam MD is Attending Physician. sp4 04:34 Donato Delgado RN is Primary Nurse. rg5 04:49 Triage completed. vc1 04:52 Arm band placed on left wrist. vc1 04:54 Patient has correct armband on for positive identification. Bed in low position. Call vc1 light in reach. Placed in gown. Pulse ox on. NIBP on. 05:00 Door closed. Noise minimized. Warm blanket given. Verbal reassurance given. rg5 05:00 No provider procedures requiring assistance completed. Inserted saline lock: 20 gauge rg5 in right hand, using aseptic technique. Blood collected. Flushed with 10 mL NS. Patient maintains SpO2 saturation greater than 95% on room air. 07:00 Report received from ANDRES Adam. kc6 07:00 Patient has correct armband on for positive identification. Placed in gown. Bed in low kc6 position. Call light in reach. Side rails up X 1. Adult w/ patient. Pulse ox on. NIBP on. Door closed. Noise minimized. Lights dimmed. Warm blanket given. Pillow given. Diet: Patient is NPO. 07:01 Vlad Stokes is Hospitalizing Provider. sp4 09:24 Patient admitted, IV remains in place. kc6 Administered Medications: 05:00 Drug: Ondansetron IVP 8 mg IVP once; over 2 minutes Route: IVP; Site: right hand; rg5 06:40 Follow up: Response: No adverse reaction br2 05:00 Drug: NS 0.9% IV 1000 ml IV at 1 bolus Per protocol; to be given as a bolus over 60 rg5 minutes Route: IV; Rate: 1 bolus; Site: right hand; 06:40 Follow up: Response: No adverse reaction; IV Status: Infusion continued; IV Intake: br2 1000ml 05:09 Drug: TORadol - Ketorolac IVP 15 mg IVP once Route: IVP; Site: right hand; rg5 06:40 Follow up: Response: No adverse reaction br2 05:10 Drug: morphine IVP or IV 8 mg IVP once over 4 mins Route: IVP; Infused Over: 4 mins; rg5 Site: right hand; 06:40 Follow up: Response: No adverse reaction br2 05:20 Drug: Piperacillin-Tazobactam IVPB 3.375 grams IVPB once over 60 mins; (mix in NS 100 rg5 mL) Route: IVPB; Infused Over: 60 mins; Site: right hand; 06:51 Follow up: Response: No adverse reaction; IV Intake: 100ml br2 06:52 Drug: vancoMYCIN IVPB 2 grams IVPB at calculated rate once Route: IVPB; Rate: br2 calculated rate; Site: right hand; 08:19 Follow up: Response: No adverse reaction; IV Status: Completed infusion; IV Intake: kc6 250ml Medication: 04:54 VIS not applicable for this client. vc1 Intake: 06:40 IV: 1000ml; Total: 1000ml. br2 06:51 IV: 100ml; Total: 1100ml. br2 08:19 IV: 250ml; Total: 1350ml. kc6 Outcome: 07:01 Decision to Hospitalize by Provider. sp4 09:24 Admitted to Med/surg accompanied by tech, via wheelchair, room 223, with chart, kc6 09:24 Condition: good 09:24 Instructed on the need for admit, 09:25 Patient left the ED. aa5 Signatures: Sherita Dougherty RN RN aa5 Do Wangj6 Yaneli Jenkins RN RN vc1 Divine Mas RN RN arian6 Monty Lam MD MD sp4 Donato Delgado RN RN rg5 Kia Bass RN RN br2 Corrections: (The following items were deleted from the chart) 05:30 04:53 LMP 09/11/2024, unknown vc1 rg5
[2024-10-02] MEDS ORDERED: ALBUTEROL 2.5 MG/3 ML NEB SOL NEB PRN ×2 (07:37→16:03)
[2024-10-02] MEDS ORDERED: ACETAMINOPHEN 500 MG TAB PO PRN (07:37)
[2024-10-02] MEDS ORDERED: MORPHINE 2 MG/ML SYR IV PRN (07:37)
--- NOTE | 2024-10-02 07:37 | P.HP ---
Certification for Inpatient Patient admitted to: Inpatient With expected LOS: >2 Midnights Practitioner: I am a practitioner with admitting privileges, knowledge of patient current condition, hospital course, and medical plan of care. Services: Services provided to patient in accordance with Admission requirements found in Title 42 Section 412.3 of the Code of Federal Regulations Patient History Date of Service: 10/02/24 Reason for admission: Left breast abscess History of Present Illness: Ms. Wills is a 38-year-old female with a past medical history of anxiety, hypothyroidism, frequent breast masses/abscesses, possibly here adenitis, obesity, and diabetes. She has seen 3 of the 4 of our surgeons for a right breast mass/abscess. She comes in today with a 3-day history of a left tender area of induration from her distal areola up to medial areola. She began taking outpatient antibiotics that she had "leftover" in hopes that the abscess would open. She has been afebrile but having chills. She will be admitted to the medicine service with a consult to Dr. Inman for I&D. She states that she has been told she needs to have her pituitary gland evaluated as she continues to have galactorrhea, but to date has not been seen in follow-up. Allergies No Known Allergies Allergy (Verified 09/25/23 07:18) Home medications list reviewed: Yes Home Medications: Aripiprazole [Abilify] 2 mg PO BEDTIME 10/02/24 Dapagliflozin Propanediol [Farxiga] 10 mg PO DAILY 10/02/24 Levothyroxine Sodium 150 mcg PO DAILY 10/02/24 Metformin HCl [Glucophage] 500 mg PO BIDWM 10/02/24 Semaglutide [Ozempic] 1 mg SQ EVERY 7TH DAY 10/02/24 - Past Medical/Surgical History Has patient received pneumonia vaccine in the past: No Diabetic: Yes -: HTN -: HLD -: Anxiety Disorder -: DM 2 -: Morbid Obesity -: Bilateral breast abscesses -: -: rt breast -: Left breast Psychosocial/ Personal History: Lives at home with significant other. States she may have difficulty with wound care - Social History Smoking Status: Unknown if ever smoked Alcohol use: Yes CD- Drugs: No Caffeine use: Yes Place of Residence: Home Review of Systems 10-point ROS is otherwise unremarkable General: As per HPI Eyes: Unremarkable ENT: Unremarkable Respiratory: Unremarkable Cardiovascular: Unremarkable Gastrointestinal: Unremarkable Genitourinary: Unremarkable Musculoskeletal: Unremarkable Integumentary: As per HPI Neurological: Unremarkable Lymphatics: Unremarkable Physical Examination - Physical Exam General: Alert, In no apparent distress, Oriented x3, Obese HEENT: Atraumatic, Normocephalic Neck: Supple, No Thyromegaly Respiratory: Normal air movement Cardiovascular: Regular rate/rhythm, Normal S1 S2 Capillary refill: <2 Seconds Gastrointestinal: Soft and benign Musculoskeletal: No swelling Integumentary: Tenderness/swelling, Other (Left breast mass distal and medial to the areola) Neurological: Normal speech, Normal tone, Normal affect Lymphatics: No axilla or inguinal lymphadenopathy External genitalia: Deferred Rectal: Deferred - Studies Laboratory Data (last 24 hrs) 10/02/24 10/02/24 05:05 05:05 WBC 11.00 H Hgb 15.4 H Hct 46.8 H Plt Count 302 Sodium 135 L Potassium 3.7 BUN 14 Creatinine 0.78 Glucose 322 H Total Bilirubin 0.6 AST 57 H ALT 71 H Alkaline Phosphatase 65 Assessment and Plan - Plan Left breast abscess/history of galactorrhea Consult Dr. Inman N.p.o. Pain management Unasyn 3 g IV every 8 hours Normal saline at 100 mL an hour Incentive spirometer Neb treatments Wound care management Diabetes with hyperglycemia Glucose monitoring with sliding scale insulin coverage while n.p.o. Patient takes metformin but will hold for 48 hours, takes Ozempic Status post I&D, ADA diet Hypertension Monitor and trend, restart home medications as needed Hyperlipidemia Check lipids in a.m. and restart statin this evening status post I&D Atorvastatin 20 mg p.o. nightly Anxiety Continue aripiprazole Hypothyroidism TSH, PTH Levothyroxine 150 mg p.o. nightly Patient has been advised to have pituitary gland evaluated via MRI VTE/GI prophylaxis Teds/Protonix Full code Discharge Plan: Home Plan to discharge in: 48 Hours - Advance Directives Does patient have a Living Will: No Does patient have a Durable POA for Healthcare: No - Code Status/Comfort Care Code Status Assessed: Yes (Full)
[2024-10-02 09:17] LABS: Thyroid Stimulating Hormone 10.6 uIU/mL (0.358-3.740)
[2024-10-02] MEDS: NA CHLORIDE 0.9% 1,000 ML IV SCH (10:27)
[2024-10-02 10:35] VITALS: BMI 48.5
[2024-10-02] MEDS ORDERED: SODIUM CHLORIDE 0.9% 10ML INJ IV PRN (10:38)
[2024-10-02] MEDS: PANTOPRAZOLE 40 MG INJ IVP ONE (11:02)
[2024-10-02] MEDS: AMPICILLIN/SULBACT 3 GM in NA CHLORIDE 0.9% 100 ML IVPB SCH (12:28)
[2024-10-02] MEDS: INSULIN REGULAR (HUMAN) 100 UNIT/ML SQ SCH ×2 (12:28→16:25)
[2024-10-02] MEDS ORDERED: propofoL 200 MG/20 ML VIAL IV ONE (13:38)
[2024-10-02] MEDS ORDERED: FENTANYL CITR 100 MCG/2 ML ONE (13:38)
[2024-10-02] MEDS ORDERED: LIDOCAINE 1% MPF 5 ML VIAL ONE (13:38)
[2024-10-02] MEDS ORDERED: MIDAZOLAM HCL 2 MG/2 ML INJ ONE (13:38)
[2024-10-02] MEDS: FAMOTIDINE 20 MG/2 ML VIAL IV ONE (13:44)
[2024-10-02] MEDS: FLU (Fluarix Triv) TS24-25(6MOS UP)/PF 45 MCG/0.5 ML Syringe IM ONE (14:00)
[2024-10-02] MEDS: LIDOCAINE HCL/EPINEPHRINE 20 ML MDV ONE (14:09)
--- NOTE | 2024-10-02 14:12 | P.CNS ---
Date of Consult: 10/02/24 PC: This 38-year-old female presented to the emergency room with severe pain in her left breast. HPC: Patient has noticed pain and tenderness as well as induration in her left breast. She has a history of prior breast abscesses. Her most recent was about 6 weeks ago. It was in the right side. Today on the left there is an area of increased swelling tenderness induration and redness in the left breast just below the areola. PSHx: Previous I&D of both left and right breast abscesses PMHx: Being worked up for possible pituitary adenoma Social Hx: No known allergies Sys R: No cough, wheeze, shortness of breath. No chest pain or palpitations. No urinary complaints O/E: Awake alert vital signs are stable HEENT: 2 cheek implants [studs] Breast: Left breast has an area about 3 cm in diameter below the left areola which is warm, red, and fluctuant consistent with an abscess. Chest: Air entry equal bilaterally Abd: Negative [place]: Intact Data: WNL Impression: Left breast abscess Plan: I will taken the operating room for incision, drainage, sharp debridement of this abscess of her left breast. There is of this procedure have been discussed. The possibility of bleeding, infection, injury to ducts, and surrounding tissue were explained. The possibility of cosmetic deformity with scar formation postop were also described. She understands and wants us to proceed. We will most likely be placing a drain, much like she had done in a previous procedure, she is comfortable with this.
[2024-10-02] MEDS ORDERED: EPHEDRINE SULF 50 MG/ML VIAL ONE (14:30)
[2024-10-02] MEDS: LIDOCAINE HCL/EPINEPHRINE 20 ML MDV SQ ONE ×2 (14:37)
--- NOTE | 2024-10-02 14:47 | P.OP ---
Preoperative diagnosis: Abscess of the left breast Postoperative diagnosis: The same Primary procedure: Incision, drainage, and sharp debridement of abscess of the left breast Anesthesia: General Estimated blood loss: Less than 10 cc Specimen: Cultures both aerobic and anaerobic were taken Operative Technique: The patient brought the operating room and placed supine on the table. After the induction of adequate general anesthesia, the area of the left breast was prepped and draped in usual aseptic manner. Attention was turned towards this abscess. It measured approximately 3 cm in diameter. The area was injected with 1% lidocaine with epinephrine. This was injected just at the junction of the areola within normal skin. Having filled the area a skin incision was made. This is brought down through the subcutaneous tissue. Using a hemostat we were now able to poke into this abscess. We encountered about 10 cc of thick purulent material that had a slight green tinge to it, there was no overwhelming odor. Cultures both aerobic and anaerobic were taken of the drainage. Attention was now turned towards our incision. #2 nylon was now introduced through the skin incision and brought out upon the areola itself. This #2 nylon was now tied on itself to provide for adequate drainage during the postoperative period. At the end of the procedure the patient was in a stable condition was sent to the recovery room. Needle sponge instrument count were correct. Complications: None Drain(s): Other (#2 nylon) Transferred to: Recovery Room Condition: Good
[2024-10-02 15:26] VITALS: O2SAT 99
[2024-10-02] MEDS ORDERED: GLUCAGON 1 MG/VIAL IM PRN (16:02)
[2024-10-02] MEDS ORDERED: D10W 125 ML IV PRN (16:02)
[2024-10-02] MEDS: INSULIN GLARGINE 100 UNIT/ML SQ SCH (16:30)
[2024-10-02 16:31] VITALS: BP 169/70; TEMP 97.2
[2024-10-02] MEDS: PROMETHAZINE 25 MG TABLET PO ONE (16:56)
--- NOTE | 2024-10-02 18:28 | P.DS ---
Admission Date: 10/02/24 Discharge Date: 10/02/24 Disposition: ROUTINE DISCHARGE Discharge Condition: FAIR Reason for Admission: Left breast abscess Hospital Course: 38-year-old woman with a past medical history of anxiety, hypothyroidism, recurrent breast masses/abscesses,and diabetes. She has seen 3 of the 4 of our surgeons for a right breast mass/abscess. She presented with a 3-day history of a left tender area of induration from her distal areola up to medial areola. She began taking outpatient antibiotics that she had "leftover" but had no response. Patient was evaluated in the ED, general surgery Dr. Inman informed who recommended I&D. She states that she has been told she needs to have her pituitary gland evaluated as she continues to have galactorrhea. Breast abscess Sepsis Patient seen by surgery Dr. Inman and I&D performed. She is discharged with oral antibiotics and analgesics as needed. Patient informed to follow-up with Dr. Inman next week to reevaluate her incision wound. Hypothyroidism Patient TSH of 10 suggests hypothyroid state. Her levothyroxine dose has been increased from 150 mcg to 170 mcg daily. Patient need a repeat TSH within 8 to 10 weeks. Diabetes mellitus type 2 Morbid obesity Patient blood sugar readings elevated today 200s. She is informed she needs good blood glucose control. She is informed blood glucose levels greater than 200 may impair wound healing and slow response to antibiotics. Patient would like to follow-up with her PCP for adjustment in her antidiabetic regimen. No changes made in her home diabetic regimen on discharge. Vital Signs/Physical Exam: Temp Pulse Resp BP Pulse Ox 97.2 F 92 H 16 169/70 H 97 10/02/24 16:00 10/02/24 16:00 10/02/24 16:00 10/02/24 16:00 10/02/24 16:00 General: Alert, In no apparent distress, Oriented x3, Obese HEENT: Mucous membr. moist/pink Neck: Supple, JVD not distended Respiratory: Clear to auscultation bilaterally, Normal air movement Cardiovascular: No edema, Regular rate/rhythm, Normal S1 S2 Gastrointestinal: Normal bowel sounds, Soft and benign, Non-distended Musculoskeletal: No swelling Integumentary: No rashes, No cyanosis Neurological: Normal speech, Normal strength at 5/5 x4 extr Laboratory Data at Discharge: WBC 11.00 thou/uL (4.3-10.9) H 10/02/24 05:05 Hgb 15.4 g/dL (12.0-15.0) H 10/02/24 05:05 Hct 46.8 % (36.0-45.0) H 10/02/24 05:05 Plt Count 302 thou/uL (152-406) 10/02/24 05:05 Sodium 135 mEq/L (136-145) L 10/02/24 05:05 Potassium 3.7 mEq/L (3.5-5.1) 10/02/24 05:05 BUN 14 mg/dL (7-18) 10/02/24 05:05 Creatinine 0.78 mg/dL (0.55-1.02) 10/02/24 05:05 Glucose 322 mg/dL (74-106) H 10/02/24 05:05 Total Bilirubin 0.6 mg/dL (0.2-1.0) 10/02/24 05:05 AST 57 U/L (15-37) H 10/02/24 05:05 ALT 71 U/L (13-56) H 10/02/24 05:05 Alkaline Phosphatase 65 U/L (45-117) 10/02/24 05:05 Home Medications: Amox/Clavulanate [Augmentin 875-125 Tab] 1 each PO BID #28 tab 10/02/24 Aripiprazole [Abilify] 2 mg PO BEDTIME 10/02/24 Atorvastatin Calcium [Lipitor*] 20 mg PO BEDTIME #30 tab 10/02/24 Codeine/APAP [Tylenol W/Codeine #3 tab] 1 tab PO Q6HP PRN #20 tab 10/02/24 Dapagliflozin Propanediol [Farxiga] 10 mg PO DAILY 10/02/24 Levothyroxine Sodium [Synthroid] 175 mcg PO DAILY #30 tab 10/02/24 Metformin HCl [Glucophage*] 500 mg PO BIDWM 10/02/24 Semaglutide [Ozempic] 1 mg SQ EVERY 7TH DAY 10/02/24 Smz./Tmp. [Bactrim Ds 800 MG/160 MG] 1 tab PO BID #28 tab 10/02/24 New Medications: Codeine/APAP [Tylenol W/Codeine #3 tab] 1 tab PO Q6HP PRN #20 tab PRN Reason: Pain Amox/Clavulanate [Augmentin 875-125 Tab] 1 each PO BID #28 tab Smz./Tmp. [Bactrim Ds 800 MG/160 MG] 1 tab PO BID #28 tab Atorvastatin Calcium [Lipitor*] 20 mg PO BEDTIME #30 tab Levothyroxine Sodium [Synthroid] 175 mcg PO DAILY #30 tab Physician Discharge Instructions: 38-year-old woman with a past medical history of anxiety, hypothyroidism, rec urrent breast masses/abscesses,and diabetes. She has seen 3 of the 4 of our surgeons for a right breast mass/abscess. She presented with a 3-day history of a left tender area of induration from her distal areola up to medial areola. She began taking outpatient antibiotics that she had "leftover" but had no response. Patient was evaluated in the ED, general surgery Dr. Inman informed who recommended I&D. She states that she has been told she needs to have her pituitary gland evaluated as she continues to have galactorrhea. Breast abscess: Patient seen by surgery Dr. Inman and I&D performed. She is discharged with oral antibiotics and analgesics as needed. Patient informed to follow-up with Dr. Inman next week to reevaluate her incision wound. Hypothyroid Patient TSH of 10 suggests hypothyroid state. Her levothyroxine dose has been increased from 150 mcg to 170 mcg daily. Patient need a repeat TSH within 8 to 10 weeks. Diabetes mellitus type 2 Patient blood sugar readings elevated today 200s. She is informed she needs good blood glucose control. She is informed blood glucose levels greater than 200 may impair wound healing and slow response to antibiotics. Patient would like to follow-up with her PCP for adjustment in her antidiabetic regimen. No changes made in her home diabetic regimen on discharge. Diet: ADA Activity: Ad isabela Followup: Cortez Inman MD [ACTIVE - CAN ADMIT] - 1 Week (Next week) Jane Adames NP [Primary Care Provider] - 1 Week Time spent managing pt's care (in minutes): 28
[2024-10-02] MEDS ORDERED: ATORVASTATIN 20 MG TAB PO SCH (21:00)
[2024-10-02] MEDS ORDERED: ARIPiprazole 5 MG TAB PO SCH ×2 (21:00)
[2024-10-02] MEDS ORDERED: ARIPIPRAZOLE 2 MG PO SCH (21:00)
[2024-10-02] MEDS ORDERED: ATORVASTATIN 40 MG TAB PO SCH (21:00)
[2024-10-03] MEDS ORDERED: LEVOTHYROXINE SOD 0.075 MG TAB PO SCH ×2 (06:30)
[2024-10-03] MEDS ORDERED: METFORMIN HCL 500 MG TAB PO SCH (08:00)
[2024-10-03] MEDS ORDERED: HOME MED 1 EA UNK (Levothyroxine Sodium [Levothyroxine Sodium] 150 MCG Tablet) PO SCH (09:00)
[2024-10-03] MEDS ORDERED: Dapagliflozin Propanediol [Farxiga] 10 MG Tablet *PT OWN MED PO SCH (09:00)
== END 2024-10-02 19:07 | disposition home or self-care (01) | DRG 854 ==
LOC: ER 04:17 → ERHOLD 07:37 → 2ND 09:18
PROVIDERS: ADMIT Internal Medicine; ATTEND Internal Medicine
PROC: 0JD60ZZ Extraction of Chest Subcutaneous Tissue and Fascia, Open Approach (ICD-10-PCS; principal; 2024-10-02 14:13)
DX: A41.9 Sepsis, unspecified organism (principal); Z68.42 Body mass index [BMI] 45.0-49.9, adult; E66.01 Morbid (severe) obesity due to excess calories; N61.1 Abscess of the breast and nipple; E03.9 Hypothyroidism, unspecified; E78.5 Hyperlipidemia, unspecified; F41.9 Anxiety disorder, unspecified; I10 Essential (primary) hypertension; E11.65 Type 2 diabetes mellitus with hyperglycemia; Z79.84 Long term (current) use of oral hypoglycemic drugs; Z79.890 Hormone replacement therapy; Z79.899 Other long term (current) drug therapy
CPT/HCPCS: 36415; 80053; 82947; 83970; 84439; 84443; 84703; 85025; 87070; 87075; 87077; 87186; 87205; 94010; 96361; 96365; 96375; 99285; J0295; J2003; J2250; J2405; J2470; J2543; J2704; J3010; J7030; J7050; Q0169

== ENCOUNTER 2024-10-27 02:33 | Emergency (ER) | payer BC ==
--- NOTE | 2024-10-27 02:58 | ER ---
Nurse's Notes [facility] Name: Champ Wills Age: 38 yrs Sex: Female : 1985 Arrival Date: 10/27/2024 Time: 02:33 Bed Waiting Private MD: Diagnosis: Presentation: 10/27 02:33 Chief complaint: Patient states: I had breast sx one month ago and have been having ABD bm8 issues since. My PCP has been doing blood work and giving me fluids but last night my belly button started bleeding profusely and the pain in my abd is just radiating left and right. Coronavirus screen: At this time, the client does not indicate any symptoms associated with coronavirus-19. Ebola Screen: Patient negative for fever greater than or equal to 101.5 degrees Fahrenheit, and additional compatible Ebola Virus Disease symptoms Patient denies exposure to infectious person. Patient denies travel to an Ebola-affected area in the 21 days before illness onset. No symptoms or risks identified at this time. 02:33 Method Of Arrival: Ambulatory bm8 02:33 Initial Sepsis Screen: Does the patient meet any 2 criteria? HR > 90 bpm. No. Patient's bm8 initial sepsis screen is negative. Does the patient have a suspected source of infection? No. Patient's initial sepsis screen is negative. Risk Assessment: Do you want to hurt yourself or someone else? Patient reports no desire to harm self or others. Onset of symptoms was October 26, 2024 at 08:00. 02:33 Acuity: LANCE 3 bm8 Triage Assessment: 02:33 General: Appears distressed, uncomfortable, Behavior is calm, cooperative, appropriate bm8 for age. 02:33 Pain: Complains of pain in anterior aspect of right lateral abdomen, anterior aspect of bm8 left lateral abdomen, right upper quadrant, left upper quadrant, right lower quadrant and left lower quadrant Pain currently is 8 out of 10 on a pain scale. Quality of pain is described as aching, crampy. EENT: No signs and/or symptoms were reported regarding the EENT system. Neuro: No deficits noted. Level of Consciousness is awake, alert, obeys commands, Oriented to person, place, time, situation, Appropriate for age. Cardiovascular: Capillary refill < 3 seconds in bilateral fingers Patient's skin is warm and dry. Respiratory: Airway is patent Trachea midline Respiratory effort is even, unlabored, Respiratory pattern is regular, symmetrical. GI: Abdomen is round non-distended, Abdomen is tender to palpation in anterior aspect of right lateral abdomen, anterior aspect of left lateral abdomen, right upper quadrant, left upper quadrant, right lower quadrant and left lower quadrant Guarding noted Reports lower abdominal pain, upper abdominal pain, cramping, diarrhea, nausea, Pain is 8 out of 10 on a pain scale. bleeding from belly button. : No signs and/or symptoms were reported regarding the genitourinary system. Derm: No signs and/or symptoms reported regarding the dermatologic system. Musculoskeletal: No signs and/or symptoms reported regarding the musculoskeletal system. 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 - Infectious Disease History:: Denies. - Social history:: Smoking status: unknown. Screenin:33 [facility] ED Fall Risk Assessment (Adult) History of falling in the last 3 months, bm8 including since admission No falls in past 3 months (0 pts) Confusion or Disorientation No (0 pts) Intoxicated or Sedated No (0 pts) Impaired Gait No (0 pts) Mobility Assist Device Used No (0 pt) Altered Elimination No (0 pt) Score/Fall Risk Level 0 - 2 = Low Risk Oriented to surroundings, Maintained a safe environment, Educated pt \T\ family on fall prevention, incl call for assistance when getting out of bed, Assessed \T\ reinforced patient's understanding of fall precautions, Hourly rounding (assess needs \T\ fall precautionary measures) done, Used ambulatory aids as needed (educated on \T\ assisted with), Used gait belt as appropriate. 02:33 Abuse screen: Denies threats or abuse. Nutritional screening: No deficits noted. bm8 Tuberculosis screening: No symptoms or risk factors identified. Assessment: 02:42 Reassessment: pt left before being roomed. bm8 Vital Signs: 02:33 BP 185 / 119; Pulse 124; Resp 20; Temp 98.5; Pulse Ox 98% ; Weight 145.15 kg; Height 5 bm8 ft. 7 in. ; Pain 8/10; 02:33 Body Mass Index 50.12 (145.15 kg, 170.18 cm) bm8 02:33 Pain Scale: Adult bm8 ED Course: 02:33 Arm band placed on right wrist. bm8 02:33 Patient has correct armband on for positive identification. Provided Education on: no bm8 education provided. Client placed on continuous cardiac and pulse oximetry monitoring. NIBP monitoring applied. Pulse ox on. NIBP on. 02:33 No provider procedures requiring assistance completed. Patient did not have IV access bm8 during this emergency room visit. 02:35 Patient arrived in ED. [id number] 02:36 Luis Angel Zhang MD is Attending Physician. rt 02:42 Kirk Stevenson, RN is Primary Nurse. bm8 02:46 Triage completed. bm8 Administered Medications: No medications were administered Medication: 02:55 VIS not applicable for this client. bm8 Outcome: 02:33 Eloped from waiting room, before seeing physician bm8 02:33 Condition: stable 02:33 Discharge instructions given to no instructions given. PT eloped 02:57 Patient left the ED. bm8 Signatures: Do Wang [email or web address] Luis Angel Zhang MD MD rt Kirk Stevenson, RN RN bm8 Corrections: (The following items were deleted from the chart) 02:50 02:50 PSHx: breast surgery; bm8 bm8 02:50 02:50 PSHx: Breast sx; bm8 bm8 02:50 02:50 PSHx: section; bm8 bm8
[2024-10-27 03:55] VITALS: BP 185/119; TEMP 98.5; O2SAT 98
== END 2024-10-27 02:57 | disposition left against medical advice (07) ==
LOC: ER 02:33
DX: Z53.21 Procedure and treatment not carried out due to patient leaving prior to being seen by health care provider (principal)
CPT/HCPCS: 99283